=== PATIENT | male | born 1980 | race Caucasian/White ===

== ENCOUNTER → 2017-03-27 | Outpatient (CLI) | payer OTHER, SELFPAY | PROVIDERS: PCP Family Medicine; Visit Provider Family Medicine | DX: M54.5 Low back pain (principal) | CPT/HCPCS: 72148; 76376 ==

== ENCOUNTER → 2017-05-27 13:23 | Outpatient (CLI) | payer OTHER, SELFPAY | PROVIDERS: Visit Provider Family Medicine | DX: J06.9 Acute upper respiratory infection, unspecified (principal) | CPT/HCPCS: 87275; 87276 ==

== ENCOUNTER → 2017-08-11 15:56 | Outpatient (CLI) | payer OTHER, SELFPAY ==
--- NOTE | 2017-08-11 16:00 | CA_ITS ---
PROCEDURE: 2-D M-mode and color Doppler study INDICATIONS FOR THE TEST: Chest pain X COPD Heart Murmur Tobacco Smoking Palpitations Fatigue Syncope Edema Hypertension Diabetes Mellitus Rheumatic Fever SOB CARR Obesity Hyperlipidemia Family History HD Additional History L ARM PAIN ABN EKG PATIENT INFORMATION HEIGHT: 74 WEIGHT:197 GENDER: Male B/P:120/74 2-D/M-MODE INTERPRETATION: 2-D MEASUREMENTS OBSERVED VALUES IN CMS Right Ventricular Dimension (RVDd) 2.6 Interventricular Septum (Thickness)(IVsd) .8 Left Ventricular Internal Dimensions(LVIDd) 5.1 Left Ventricular Posterior Wall (Thickness)(LVPWd) 1.0 Aortic Root 3.1 Aortic Cusp Separation 2.0 Left Atrial Dimensions (LAD) 3.8 2D 1. Left atrium is normal size, left ventricle is normal size, there is no concentric left ventricular hypertrophy, visually estimated ejection fraction 55% with no obvious regional wall motion abnormality. 2. The right atrium and right ventricle are normal size and contractility. 3. The aortic valve is minimally thickened and fibrosed. 4. The mitral and tricuspid valve are grossly normal. 5. The pulmonic valve is poorly visualized. 6. No significant pericardial effusion noted. DOPPLER INTERROGATION: Doppler interrogation of the aortic, mitral and tricuspid valvular presence of mild mitral and tricuspid regurgitation, mild aortic insufficiency is also seen. Tricuspid regurgitant jet velocity insufficient for calculation of the right ventricular systolic pressure, diastolic parameters are normal range. CONCLUSION: 1. Normal left ventricular size, preserved left ventricular systolic function, visually estimated ejection fraction 55% with no obvious regional wall motion abnormality, diastolic parameters are within normal range. 2. Mild aortic, mild mitral and tricuspid regurgitation 3. No significant pericardial effusion noted.
== END ==
PROVIDERS: PCP Family Medicine; Visit Provider Internal Medicine
DX: R94.31 Abnormal electrocardiogram [ECG] [EKG] (principal); M79.602 Pain in left arm
CPT/HCPCS: 93306

== ENCOUNTER → 2018-01-07 15:06 | Outpatient (CLI) | payer OTHER, SELFPAY ==
--- NOTE | 2018-01-07 15:08 | MR_ITS ---
MR lumbar spine wo con, MR 3-d myelogram/MRCP Ordering Physician: Rosales Hogue MD Patient Age: 37 years: Male HISTORY: ITS.REASON: LBP Low back pain with right hip and right leg and lateral calf pain weakness right hip ankle and great toe 6 days. [place] a pop with pain TECHNIQUE: Sagittal STIR, T1, T2, axial T1 and T2. On 1.5T Siemens wide bore MRI. 3-D MR myelogram image set obtained & performed on MRI workstation. Additional sagittal thin section T2 weighted dataset obtained from this latter acquisition as well (---76 CPT) COMPARISON : Previous MRI lumbar March 27, 2017 FINDINGS Vertebral bodies are intact with no compression fracture or osseous lesion L5/S1 mild degenerative disc space narrowing & loss of disc hydration. Fairly stable appearance of this disc since 2017. Again note central disc bulge with slight additional bulge/protrusion just to the left of midline as evident in 2017 MR. mild facet hypertrophy. L4/5.. Loss of disc hydration. Trace disc space narrowing posteriorly. Although the disc space appears similar to previous study, on sagittal image 7 there is focal caudal disc protrusion arising from L4/5 disc.. I believe this contiguous and leads to a sequestered free disc fragment residing along posterior right aspect of L5 vertebral body. L5-. This sequestered/ free disc fragment is best seen on sagittal images 5 &, 6. This sequestered disc fragment measures up to 11 mm height X at least 6 mm AP & nearly 10 mm transverse dimension.. This moderate sized disc fragment effaces the thecal sac to the right anteriorly & displaces the right L5 nerve root. It extends to through the right lateral recess adjacent to the exiting L5 nerve root. This would seem to correlate with the patient's right L5 symptoms. ------ L3/4. Only slight loss of disc hydration a mild central disc bulge. . central disc bulge seen here today is is very slightly less pronounced.. (I initially question if the the free fragment seen posterior to L5 may have arisen from this level and migrated inferiorly, but on final review I favor the free fragment arises from adjacent L4/5 disc extends caudal.) L2/3. Disc intact neural foramen widely patent without L1/2. Mild central disc bulge similar to previous 2017 exam. Slightly flattens and effaces thecal sac at midline. Modest but adequate spinal canal.. Note that Conus ends appropriately posterior to L1 level. T12/L1 disc intact. T11/12 disc intact. 3-D MR myelogram image performed and reviewed.: It Shows a slight anterior indentation from the central disc bulge at L3/4, L1/2 and to lesser L2/3. Posterior to the L5 vertebral body, the mild effacement of the thecal sac to the right (due to the free disc fragment is barely appreciable but is vaguely evident on 3-D myelogram image set as well IMPRESSION 1. The significant new finding is a sequestered/ free disc fragment along posterior right aspect of L5 vertebral body. . This free disc fragment effaces thecal sac anteriorly to the right, & displaces the right L5 nerve root. It also extends downward at the right lateral recess where it may also affect the exiting L5 nerve root sleeve. 2... Degenerative disc changes again noted briefly summarized below: ... L5/S1: Degenerated disc with disc bulge central & slightly left of midline. Appears stable since 2017. ... L4/5: disc appears surprising stable since 2017 but likely is the source of the caudal extruded, free disc fragment to posterior to the L5 described above ... L3/4 & L1/2 mild central disc bulge
== END ==
PROVIDERS: PCP Family Medicine; Visit Provider Family Medicine
DX: M54.5 Low back pain (principal)
CPT/HCPCS: 72148; 76376

== ENCOUNTER → 2018-04-05 15:27 | Outpatient (POV) | payer OTHER, SELFPAY | PROVIDERS: Visit Provider Nurse Practitioner Acute Care | DX: Z00.00 Encounter for general adult medical examination without abnormal findings (principal) ==

== ENCOUNTER → 2019-10-04 11:52 | Outpatient (CLI) | payer OTHER, SELFPAY ==
[2019-10-04 14:41] LABS: Coronavirus 19 IgG Antibody Negative (Negative); Coronavirus 19 IgM Antibody Negative (Negative)
== END ==
PROVIDERS: Visit Provider Internal Medicine Adolescent Medicine
DX: Z03.818 Encounter for observation for suspected exposure to other biological agents ruled out (principal); R05 Cough
CPT/HCPCS: 36415; 86328

== ENCOUNTER → 2019-10-27 07:49 | Outpatient (CLI) | payer OTHER, SELFPAY ==
--- NOTE | 2019-10-27 07:53 | MR_ITS ---
PROCEDURE: MR LUMBAR SPINE WO CON Patient Age:38Y CLINICAL INDICATION: ACUTE LOW BACK PAIN the. Back surgery 2018. Bilateral radicular pain right leg worse than left. No injury. COMPARISON: BILLET [facility]ARER/O MRI-L-SPINE W/O from 03/27/2017 SPLUMBWO MR lumbar spine wo con from 01/07/2018 TECHNIQUE: standard multiplanar multiecho sequences are performed without contrast. 3-D MIP and myelographic images are also rendered and reviewed, 3D images performed on independent MRI workstation No IV contrast used in this postsurgical spine. Contrast of follow-up may be considered if symptoms persist or progress. FINDINGS: The lumbar vertebral bodies are intact with no compression fracture or acute findings but no lesions. Normal marrow signal. Today's scan includes the T11/12 disc and continues down to the S2 level L5/S1:. No significant new findings versus 2018. Again degenerative L5/S1 disc space narrowing is similar prior 2018 study. Minor central disc bulge a noted with slight additional bulge/protrusion just left of midline send it again suggested but no significant change since 2018 L4/5: Interval small right laminectomy L4/5 since 2018. The previously moderate size free disc fragment to the right just inferior to this disc, has been removed. Some scant residual low signal features noted in this same region at right recess, right paracentral on today's study. This most likely reflects fibrosis/scarring (axial T1 image 21, 20 sagittal image 6) rather scant residual or recurrence disc material.. However if symptoms persist you might consider follow-up postcontrast study, particularly if right L5 radiculopathy, to further evaluate this area and greater detail. Enhancement here would support enhancing fibrosis rather than residual recurring disc material., Stable scant residual bulge otherwise seen L4/5 only very slightly more evident to the right L3/4. Stable minimal degenerative disc changes. Stable mild diffuse disc bulge which slightly flattens and very slight effaces anterior aspect of thecal sac.. Unchanged. With this slightly evident on 3D myelogram image set as well. Also again note the stable slight loss of disc hydration with borderline narrowing of this disc space. Minimal disc bulge towards foramen and recesses.-appears unchanged L2/3. Disc well-hydrated maintained unremarkable. Neural foramen patent. L1/2. No change. Stable minor central bulge again with some upper normal signal at the posterior disc margin-. I would overall this disc well hydrated and height well maintained T12/L1 and L1/L2 disc unremarkable.. Conus ends appropriately at L1 + Very small Schmorl's node superior and inferior endplate L1 unchanged 3D MR myelogram image set shows no new findings Aorta normal caliber no retroperitoneal adenopathy or process. The partially imaged medial aspect the kidneys of satisfactory, stable-with no obstructive uropathy evident IMPRESSION: 1..Small Right Laminectomy L4/5 now evident with interval removal of prominent free disc fragment to the right at L4/5, since prior 2018 MR lumbar. Scant residual low signal right recess/right paracentral at prior postsurgical region L4/5-. Tend favor reflects postsurgical Epidural Fibrosis but is noted.- If right-sided symptoms persist, consider follow-up Postcontrast MRI lumbar to further evaluate-(postsurgical epidural fibrosis tends to enhance on post-contrast studies) 2. Mild Degenerative Changes other levels lumbar spine observed& Stable; with No appreciable change since MR lumbar studies: . L5/S1- degenerative disc space narrowing; with Mild Central Disc Bulge extending just left of midline . L4/5-scant minor diffuse disc
== END ==
PROVIDERS: PCP Internal Medicine Adolescent Medicine; Visit Provider Internal Medicine Adolescent Medicine
DX: M54.5 Low back pain (principal)
CPT/HCPCS: 72148; 76376

== ENCOUNTER → 2020-05-01 08:19 | Outpatient (POV) | payer OTHER, SELFPAY | PROVIDERS: Visit Provider Dermatology | DX: Z00.00 Encounter for general adult medical examination without abnormal findings (principal) ==

== ENCOUNTER → 2020-06-08 08:09 | Outpatient (CLI) | payer OTHER, SELFPAY ==
[2020-06-08 09:13] LABS: Alanine Aminotransferase 27 U/L (12-78); Albumin/Globulin Ratio 1.8 (1.1-1.8); Alkaline Phosphatase 45 U/L (38-126); Anion Gap 13.5 mEq/L (5-15); Aspartate Amino Transferase 36 U/L (17-59); Bilirubin,Total 1.1 mg/dl (0.2-1.3); Blood Urea Nitrogen 15 mg/dl (9-20); Calcium 9.9 mg/dl (8.4-10.2); Carbon Dioxide 29 mmol/L (22.0-30.0); Chloride 103 mmol/L (98-107); Estimated Glomerular Filt Rate 94 ml/min (>60); GFR (African American) 114 ML/MIN (>60); Globulin 2.8 g/dL (1.3-3.2); Glucose 85 mg/dl (74-100); Potassium 4.5 mmoL/L (3.5-5.1); Sodium 141 mmol/L (136-145); Total Protein,Serum 7.8 g/dl (6.3-8.2); Uric Acid 7.8 mg/dl (3.5-8.5)
== END ==
PROVIDERS: Visit Provider Internal Medicine Adolescent Medicine
DX: M79.674 Pain in right toe(s) (principal)
CPT/HCPCS: 36415; 80053; 84550

== ENCOUNTER → 2020-06-18 08:02 | Outpatient (CLI) | payer OTHER, SELFPAY | PROVIDERS: PCP Internal Medicine Adolescent Medicine; Visit Provider Nurse Practitioner Family | DX: R07.9 Chest pain, unspecified (principal); R00.2 Palpitations | CPT/HCPCS: 93225; 93226 ==

== ENCOUNTER → 2020-06-19 15:07 | Outpatient (CLI) | payer OTHER, SELFPAY ==
--- NOTE | 2020-06-19 15:10 | CA_ITS ---
APPROVED REPORT EXAM: Comprehensive 2D, Doppler, and color-flow Echocardiogram Shading Painter: Rosio Umanzor RT(R) Ht: 6 ft 2 in Wt: 197lbs BSA: 2.16 BP: 120/75 mmHg Indications: CP, chest tightness at rest and exertion, dizziness, vertigo 2D Dimensions LVOT 1.97 cm (M/F) 1.5-2.5 M-Mode Dimensions RVDd 2.70 cm (0.9-2.6) LA Diam 3.66 cm (1.9-4.0) LVDd 5.13 cm (3.5-5.7) Ao Diam 2.33 cm (2.0-3.7) LVDs 3.34 cm (3.5-5.7) IVSd 0.84 cm (0.6-1.1) PWd 0.91 cm (0.6-1.1) EF (Teich) 63.80% FS 34.90% EDV (Teich) 125.50 mL ESV (Teich) 45.40 mL LV Diastology E Decel Time 217.00 (160-240 msec) E/A Ratio 1.2 MED E' 15.70 (< 7 cm/sec) E'/MED E' Ratio 6.54 (>14) LAT E' 15.40 (<10 cm/sec) E/LAT E' Ratio 6.67 (>14) Mitral Valve MV E Max Carlin. 103.00 (40-130 cm/s) MV A Velocity 88.00 (40-130 cm/s) E/A Ratio 1.17 MV Decel. Time 217.00 (160-240 ms) MV PHT 63.00 ms Tricuspid Valve TR P. Velocity 274.00 cm/s RAP Estimate 10.00 mmHg RVSP 40.00 mmHg Left Ventricle Left atrium is normal size, left ventricle is normal size, there is no concentric left ventricular hypertrophy, visually estimated ejection fraction 55% with no regional wall motion abnormality, diastolic parameters are within normal range. Right Ventricle Right atrium and right ventricular upper limit of the normal size and function. Aortic Valve Aortic valve is minimally thickened and fibrosed, there is no aortic stenosis or aortic insufficiency. Mitral Valve Mitral valve is grossly normal, there is trace mitral regurgitation. Tricuspid Valve Tricuspid valve grossly normal, there is mild tricuspid regurgitation, calculated right ventricular systolic pressure is 37 mmHg. Pulmonic Valve Pulmonic valve is poorly visualized. Great Vessels Aortic root is normal size. Pericardium No significant pericardial effusion noted. Conclusion 1. Normal left ventricular size, preserved left ventricular systolic function, visually estimated ejection fraction 55% with no regional wall motion abnormality, diastolic parameters are within normal range. 2. Trace mitral and mild tricuspid regurgitation, calculated right ventricular systolic pressure 37 mmHg. 3. No significant pericardial effusion noted. Electronically signed by : Richard Crowley, 06/19/2020 19:30:31
== END ==
PROVIDERS: PCP Internal Medicine Adolescent Medicine; Visit Provider Nurse Practitioner Family
DX: R07.9 Chest pain, unspecified (principal); R00.2 Palpitations
CPT/HCPCS: 93306

== ENCOUNTER → 2020-06-28 13:15 | Outpatient (CLI) | payer OTHER, SELFPAY ==
--- NOTE | 2020-06-28 13:15 | CT_ITS ---
PROCEDURE: CT ANGIO CHEST CLINCIAL INDICATION: Dyspnea, abnormal echo COMPARISON: No exams were available for comparison TECHNIQUE: IV Contrast: 70ML Isovue 370 Axial images obtained with sagittal and coronal reformats. All CT scans at the facility use one or more dose reduction, viz: automated exposure control, ma/kV adjustment per patient size (including targeted exams where dose is matched to indication, i.e. head), or iterative reconstruction technique. FINDINGS: HEART AND MEDIASTINAL STRUCTURES: The pulmonary arteries demonstrate adequate opacification. There is minor beam hardening artifact noted in the main pulmonary arteries without evidence of focal filling defects. The segmental and subsegmental vessels opacify normally without evidence of focal filling defects. The heart size is normal. No pericardial effusions. The visualized thoracic aorta is unremarkable LUNGS AND PLEURAL SPACES: No focal consolidation, pleural effusions or pneumothorax. No suspicious lung nodules. Calcified granulomas in the right upper lobe. The central tracheobronchial tree is patent. No suspicious lung nodules. BONY STRUCTURES: Multilevel degenerative changes of the thoracic spine. UPPER ABDOMEN: Cholecystectomy is noted. The visualized upper abdominal solid organs are unremarkable within the limitations of phase of IV contrast. Tortuous splenic vessels noted. ADDITIONAL FINDINGS: The visualized thyroid gland is unremarkable. IMPRESSION: No evidence of pulmonary embolism. No acute intrathoracic abnormality. Dictated by: Stacie Lopez 06/28/2020 14:15 Stacie Lopez in [place] 06/28/2020 14:15
== END ==
PROVIDERS: PCP Internal Medicine Adolescent Medicine; Visit Provider Internal Medicine Cardiovascular Disease
DX: R06.00 Dyspnea, unspecified (principal); R93.1 Abnormal findings on diagnostic imaging of heart and coronary circulation
CPT/HCPCS: 71275; Q9967

== ENCOUNTER → 2020-07-18 15:14 | Outpatient (CLI) | payer OTHER, SELFPAY | PROVIDERS: PCP Internal Medicine Adolescent Medicine; Visit Provider Physician Assistant | DX: Z87.898 Personal history of other specified conditions (principal); R06.83 Snoring; R53.83 Other fatigue; G47.30 Sleep apnea, unspecified | CPT/HCPCS: 95806 ==

== ENCOUNTER → 2021-04-03 14:28 | Outpatient (CLI) | payer OTHER, SELFPAY ==
--- NOTE | 2021-04-03 14:29 | MR_ITS ---
FINAL REPORT CLINICAL HISTORY: RT elbow pain without injury or trauma FINDINGS: Multiplanar MR imaging of the right elbow was performed without contrast. The bony structures are intact without evidence of fracture, bone bruise or marrow edema. There is no evidence of osteochondral lesion. The ligaments appear intact. There is heterogeneous signal within the common extensor tendon. There is mild abnormal linear signal at the insertion of the common extensor tendon consistent with a partial insertional tear best seen on image 21 of series 9. There is diffuse heterogeneous signal in the common flexor tendon consistent with degeneration and insertional tear. The biceps tendon is intact. The distal triceps tendon is intact. The brachialis tendon is intact. The musculature has an unremarkable appearance. A small joint effusion is present. No focal abnormality is identified of the ulnar nerve. IMPRESSION: Partial insertional tears of the common extensor and common flexor tendons. Small joint effusion. Reviewed, Interpreted and Dictated by Akil Massey MD Transcribed by Panchito Lozano Authenticated by Akil Massey MD on 04/03/2021 03:54:[address] [facility]
== END ==
PROVIDERS: PCP Internal Medicine Adolescent Medicine; Visit Provider Orthopaedic Surgery
DX: M77.01 Medial epicondylitis, right elbow (principal)
CPT/HCPCS: 73221

== ENCOUNTER → 2022-01-14 07:10 | Outpatient (CLI) | payer OTHER, SELFPAY ==
--- NOTE | 2022-01-14 07:40 | MR_ITS ---
FINAL REPORT CLINICAL HISTORY: LOW BACK PAIN. HX BACK SURGERY 2018.. PAIN, NUMBNESS, AND TINGLING BILATERALLY DOWN LEGS BUT RIGHT LEG IS WORSE. WEAKNESS IN RIGHT ANKLE AND TOE EXTENSION. COMPARISON: The September 2019 FINDINGS: Multiplanar MR imaging of the lumbar spine was performed without contrast. On the sagittal T2-weighted images, disc degeneration is seen at multiple levels. There is a hemangioma in T12. There are several Schmorl's nodes. The vertebral alignment is normal. There is no evidence of fracture. The conus has an unremarkable appearance. T12-L1: No significant central canal stenosis or neural foraminal narrowing. L1-2: There is an annular bulge with a posterior midline annular tear. L2-3: There is an annular bulge with a posterior midline annular tear. There is mild right neural foraminal narrowing. L3-4: There is an annular bulge with a posterior midline annular tear and small central disc protrusion, similar to prior. There is mild bilateral neural foraminal narrowing. L4-5: There is an annular bulge with mild right neural foraminal narrowing. L5-S1: An annular bulge is present. A central disc protrusion indents the thecal sac and contacts the left S1 nerve root, visually stable. There is mild bilateral neural foraminal narrowing. IMPRESSION: Multilevel degenerative disc disease with areas of neural foraminal narrowing. Disc protrusions at L3-L4 and L5-S1, similar to prior. Reviewed, Interpreted and Dictated by John Sapp III, MD Transcribed by Panchito Lozano Authenticated and [facility]
== END ==
PROVIDERS: PCP Nurse Practitioner Family
DX: M54.50 Low back pain, unspecified (principal)
CPT/HCPCS: 72148; 76376

== ENCOUNTER → 2022-06-20 07:58 | Outpatient (CLI) | payer OTHER, SELFPAY ==
[2022-06-20 08:39] LABS: Basophils # 0.1 K/mm3 (0-0.2); Basophils % 1.3 % (0.1-2.0); Eosinophils # 0.1 K/mm3 (0.0-0.4); Hematocrit 42.2 % (42.0-52.0); Hemoglobin 14.4 g/dL (14.1-18.0); Lymphocytes # 1.2 K/mm3 (0.7-4.5); Mean Corpuscular HGB Conc 34.1 g/dL (31.8-35.4); Mean Corpuscular Hemoglobin 31.5 pg (27.0-31.2); Mean Corpuscular Volume 92.3 fl (80-94); Mean Platelet Volume 8.1 fl (7.4-10.4); Monocytes # 0.4 K/mm3 (0.1-1.0); Monocytes % 6.8 % (1.7-9.3); Neutrophils # 4.1 K/mm3 (1.8-7.8); Platelet Count 256 K/mm3 (142-424); Red Blood Count 4.57 M/mm3 (4.60-6.20); Red Cell Distribution Width 12.6 % (11.5-17.5); White Blood Count 5.8 K/mm3 (4.8-10.8)
[2022-06-20 08:56] LABS: Alanine Aminotransferase 52 U/L (12-78); Albumin Level 4.7 g/dl (3.5-5.0); Albumin/Globulin Ratio 1.9 (1.1-1.8); Alkaline Phosphatase 47 U/L (38-126); Anion Gap 8.7 mEq/L (5-15); Aspartate Amino Transferase 49 U/L (17-59); Bilirubin,Total 1.4 mg/dl (0.2-1.3); Blood Urea Nitrogen 16 mg/dl (9-20); Calcium 9.1 mg/dl (8.4-10.2); Carbon Dioxide 32 mmol/L (22.0-30.0); Chloride 100 mmol/L (98-107); Chol/HDL Ratio 4.5 (1-3.5); Cholesterol 179 mg/dl (140-200); Estimated Glomerular Filt Rate 93 ml/min (>60); GFR (African American) 113 ML/MIN (>60); Globulin 2.5 g/dL (1.3-3.2); Glucose 82 mg/dl (74-100); HDL Cholesterol 40 mg/dl (40-60); Potassium 4.7 mmoL/L (3.5-5.1); Sodium 136 mmol/L (136-145); Total Protein,Serum 7.2 g/dl (6.3-8.2); Triglycerides 60 mg/dl (30-150); VLDL Cholesterol 12 mg/dL (0-40)
[2022-06-20 09:07] LABS: Direct LDL Cholesterol 117.41 mg/dL (100-129)
[2022-06-20 09:28] LABS: Prostate Specific Ag Screen 0.8 ng/ml (0.0-4.0)
== END ==
PROVIDERS: PCP Nurse Practitioner Family; Visit Provider Nurse Practitioner Family
DX: Z00.00 Encounter for general adult medical examination without abnormal findings (principal); Z80.42 Family history of malignant neoplasm of prostate; Z12.5 Encounter for screening for malignant neoplasm of prostate
CPT/HCPCS: 36415; 80053; 80061; 84443; 85025; G0103

== ENCOUNTER → 2022-07-16 13:31 | Outpatient (CLI) | payer OTHER, SELFPAY ==
[2022-07-16 15:47] LABS: Alanine Aminotransferase 60 U/L (12-78); Albumin Level 5.4 g/dl (3.5-5.0); Alkaline Phosphatase 54 U/L (38-126); Aspartate Amino Transferase 49 U/L (17-59); Bilirubin,Indirect 1.3 mg/dL (0.0-0.9); Bilirubin,Total 1.3 mg/dl (0.2-1.3); Bilirubin,Unconjugated 1.4 mg/dL (0.0-1.1); Total Protein,Serum 8.1 g/dl (6.3-8.2)
[2022-07-25 12:25] LABS: F001-IgE Egg White <0.10 kU/L (Class 0); F002-IgE Milk <0.10 kU/L (Class 0); F003-IgE Codfish <0.10 kU/L (Class 0); F004-IgE Wheat <0.10 kU/L (Class 0); F010-IgE Sesame Seed <0.10 kU/L (Class 0); F013-IgE Peanut <0.10 kU/L (Class 0); F014-IgE Soybean <0.10 kU/L (Class 0); F024-IgE Shrimp <0.10 kU/L (Class 0); F256-IgE Walnut <0.10 kU/L (Class 0); F338-IgE Scallop <0.10 kU/L (Class 0)
== END ==
PROVIDERS: PCP Nurse Practitioner Family; Visit Provider Nurse Practitioner Family
DX: R10.9 Unspecified abdominal pain (principal); K30 Functional dyspepsia; R17 Unspecified jaundice; G89.29 Other chronic pain
CPT/HCPCS: 36415; 80076; 86003; 86008

== ENCOUNTER → 2022-07-18 08:46 | Outpatient (CLI) | payer OTHER, SELFPAY ==
--- NOTE | 2022-07-18 11:29 | US_ITS ---
FINAL REPORT CLINICAL HISTORY: ABNORMAL BILIRUBIN FINDINGS: Sonographic images of the right upper quadrant were obtained. The pancreas is partially obscured. The liver has an unremarkable appearance. The portal vein is patent with normal directional flow. The hepatic veins are patent. The gallbladder is surgically absent. There is no evidence of biliary ductal dilatation.The common duct measures 2 mm. Limited images of the right kidney are unremarkable. IMPRESSION: Cholecystectomy. Otherwise unremarkable exam. Reviewed, Interpreted and Dictated by John Sapp III, MD Transcribed by Lelia Rolon Authenticated and [facility]
== END ==
PROVIDERS: PCP Nurse Practitioner Family; Visit Provider Nurse Practitioner Family
DX: R79.89 Other specified abnormal findings of blood chemistry (principal)
CPT/HCPCS: 76705

== ENCOUNTER 2022-10-22 18:19 | Emergency (ER) | payer OTHER, SELFPAY ==
[2022-10-22 18:50] VITALS: BP 121/86; PULSE 54; RESP 18; TEMP 37; O2SAT 99; BMI 25.7
[2022-10-22 19:03] VITALS: BP 121/86; PULSE 54; RESP 18; TEMP 37; O2SAT 99
--- NOTE | 2022-10-22 19:21 | EXP.UTC ---
Discharge Plan Disposition Patient Disposition: Home, Self-Care Condition: Good Prescriptions Prescriptions: New amoxicillin 500 mg tablet 500 mg PO Q12H 10 Days Qty: 20 0RF No Action buspirone 10 mg tablet 10 mg PO BID Referrals Follow up/Referrals: Joana Mcfadden APRN [Primary Care Provider] - See instructions Clinical Impressions Clinical Impression: Strep pharyngitis Instructions Patient Instructions: DI for Strep Throat Discharge ED Provider: Angelia Cameron [facility] General Stated complaint: exposed to strep Mode of Arrival: Ambulatory Source of Information: Patient Limitations: No Limitations Time Seen by Provider: 10/22/22 19:21 Description of Symptoms (Recalled from Triage Doc. by RN): PATIENT STATES HIS THROAT FEELS SWOLLEN WITH WHITE DRAINAGE. HE THINKS HE MIGHT HAVE BEEN RECENTLY EXPOSED TO STREP HEENT Symptoms (Recalled from RN notes): Yes Resp Symptoms (Recalled from RN notes): No Skin Symptoms (Recalled from RN notes): No MS Symptoms (Recalled from RN notes): No Functional Status (Recalled from RN notes): WNL History of Present Illness Provider Complaint: Pt states that he just got back from vacation and feels as if he may have been exposed to strep as his throat is sore and feels swollen. Related Data Home Medications Medication Instructions Recorded Confirmed buspirone 10 mg tablet 10 mg PO BID GASTRIC MOTILITY 06/22/20 10/22/22 Previous Rx's Medication Instructions Recorded amoxicillin 500 mg tablet 500 mg PO Q12H 10 days #20 tabs 10/22/22 Allergies Allergy/AdvReac Type Severity Reaction Status Date / Time hydromorphone [HYDROMORPHONE] Allergy Severe S-DIFF. Verified 02/08/21 14:18 BREATHING, CHEST TIGHTNESS Worker's Comp Is this a Worker's Comp case?: No [facility] Disclaimer: The information contained in this section may have been updated after the patient was seen, as this information can be updated by other users. Social History Smoking Status: Never smoker alcohol intake: current substance use type: denies use current occupational status: employed Travel in the last 8 weeks: None household members: spouse and family housing: house caffeine: No ROS Obtained: Yes All systems reviewed & no additional complaints except as documented Constitutional Constitutional: Reports system reviewed and no additional complaints, except as documented and Reports malaise Eyes Eyes: Reports system reviewed and no additional complaints, except as documented ENT Ears, Nose, Mouth, and Throat: Reports system reviewed and no additional complaints, except as documented, Reports odynophagia and Reports sore throat Cardiovascular Cardiovascular: Reports system reviewed and no additional complaints, except as documented Respiratory Respiratory: Reports system reviewed and no additional complaints, except as documented Gastrointestinal Gastrointestingal: Reports system reviewed and no additional complaints, except as documented and odynophagia Genitourinary Male Genitourinary: Reports system reviewed and no additional complaints, except as documented Musculoskeletal Musculoskeletal: Reports system reviewed and no additional complaints, except as documented Integumentary/Breasts Skin/Breast: Reports system reviewed and no additional complaints, except as documented Neurologic Neurologic: Reports system reviewed and no additional complaints, except as documented Endocrine Endocrine: Reports system reviewed and no additional complaints, except as documented Hematologic/Lymphatic Henatologic/Lymphatic: Reports system reviewed and no additional complaints, except as documented Allergic/Immunologic Allergic/Immunologic: Reports system reviewed and no additional complaints, except as documented Physical Exam General General appearance: alert and in no apparent distress Head Head exam: atraumatic and normocephalic Eye Eye exam: Present nor
[2022-10-22 19:24] LABS: UTC Strep Screen (Rapid) Positive (Negative)
== END 2022-10-22 19:42 | disposition home or self-care (01) ==
PROVIDERS: Emergency Provider Nurse Practitioner Family; PCP Nurse Practitioner Family
DX: J02.0 Streptococcal pharyngitis (principal)
CPT/HCPCS: 87880; 99204; 99212; G0463

== ENCOUNTER 2022-11-24 17:56 | Emergency (ER) | payer OTHER, SELFPAY ==
--- NOTE | 2022-11-24 17:56 | ECG_ITS ---
APPROVED REPORT Exam: Resting ECG HR:58 bpm ECG Measurements Heart Rate 58 AXES NV 183 P 54 QRSd 94 QRS 39 QT 410 T 47 QTc 407 Conclusion SINUS BRADYCARDIA WITH SINUS ARRHYTHMIA BORDERLINE ECG UNCONFIRMED REPORT Electronically signed by : Brian Lowry MD 11/25/2022 17:19:03
[2022-11-24 17:58] VITALS: BP 166/100; PULSE 61; RESP 17; TEMP 36.9; O2SAT 97; BMI 25.0
[2022-11-24 18:05] VITALS: BMI 25.0
--- NOTE | 2022-11-24 18:06 | XR_ITS ---
PROCEDURE INFORMATION: Exam: XR Chest Exam date and time: 11/24/2022 6:07 PM Age: 42 years old Clinical indication: Sternal or substernal pain; Additional info: Chest pain protocol TECHNIQUE: Imaging protocol: Radiologic exam of the chest. Views: 1 view. COMPARISON: CT ANGIO CHEST 06/28/2020 1:23 PM FINDINGS: Lungs: No consolidation. Small right apical calcified granulomas. Pleural spaces: Unremarkable. No pleural effusion. No pneumothorax. Heart/Mediastinum: Unremarkable. No cardiomegaly. Bones/joints: Unremarkable. IMPRESSION: No acute pulmonary findings.
--- NOTE | 2022-11-24 18:11 | PC.NURSE ---
portable chest xray at [facility]
[2022-11-24 18:16] LABS: Basophils # 0.1 K/mm3 (0-0.2); Basophils % 0.7 % (0.1-2.0); Eosinophils # 0.1 K/mm3 (0.0-0.4); Hematocrit 44.4 % (42.0-52.0); Hemoglobin 15.4 g/dL (14.1-18.0); Lymphocytes # 1.9 K/mm3 (0.7-4.5); Lymphocytes % 22.1 % (10-50); Mean Corpuscular HGB Conc 34.6 g/dL (31.8-35.4); Mean Corpuscular Hemoglobin 31.5 pg (27.0-31.2); Mean Platelet Volume 8.4 fl (7.4-10.4); Monocytes # 0.4 K/mm3 (0.1-1.0); Monocytes % 5.2 % (1.7-9.3); Platelet Count 267 K/mm3 (142-424); Red Blood Count 4.88 M/mm3 (4.60-6.20); Red Cell Distribution Width 12.1 % (11.5-17.5); White Blood Count 8.5 K/mm3 (4.8-10.8)
[2022-11-24 18:18] LABS: Chloride 96 mmol/L (98-107)
[2022-11-24 18:19] LABS: Potassium 3.6 mmoL/L (3.5-5.1); Sodium 137 mmol/L (136-145)
[2022-11-24 18:21] LABS: Blood Urea Nitrogen 16 mg/dl (9-20); Creatinine Clearance Estimated 120 mL/min (50-200); Estimated Glomerular Filt Rate 82 ml/min (>60); GFR (African American) 99 ML/MIN (>60)
[2022-11-24 18:22] LABS: Anion Gap 15.6 mEq/L (5-15); Calcium 9.9 mg/dl (8.4-10.2); Carbon Dioxide 29 mmol/L (22.0-30.0); Glucose 107 mg/dl (74-100)
[2022-11-24 18:30] VITALS: BP 162/87; PULSE 58; O2SAT 97
[2022-11-24 18:35] LABS: Troponin I 0.01 ng/ml (0.00-0.034)
--- NOTE | 2022-11-24 18:41 | HMH.EDGENADL ---
Discharge Plan Disposition Patient Disposition: Home, Self-Care Prescriptions Prescriptions: New amoxicillin-pot clavulanate [Augmentin] 500-125 mg tablet 1 tab PO BID 10 Days Qty: 20 0RF No Action buspirone 10 mg tablet 10 mg PO BID amoxicillin 500 mg tablet 500 mg PO Q12H 10 Days Qty: 20 0RF Referrals Follow up/Referrals: Provider,Referral, MD [Primary Care Provider] - See instructions Activity Restrictions/Add. Instructions Additional Instructions/Restrictions: Call your family doctor to establish care for this visit to the emergency department and schedule follow-up within 48 hours to ensure improvement. If you have any worsening of your condition or any other concerning signs or symptoms, return to the emergency department or your primary care doctor for further evaluation. Take Tylenol 1000 mg every 6 hours (4 times daily) and ibuprofen 400 mg every 6 hours (4 times daily) as needed with food and water to prevent GI upset and kidney damage. Flonase and Zyrtec/Claritin daily. Clinical Impressions Clinical Impression: Chest pain, Acute dehydration Acute serous otitis media Qualifiers: Laterality: right Recurrence: recurrent Qualified Code(s): H65.04 - Acute serous otitis media, recurrent, right ear Discharge ED Provider: Jhoan Covington General Adult HPI General Chief complaint: Chest Pain Stated complaint: CP Time Seen by Provider: 11/24/22 18:07 Mode of Arrival: Ambulatory Source of Information: Patient Limitations: No Limitations Description of Symptoms (Recalled from ER Triage Doc. by RN): Presents to ED with c/o midsternal chest pressure and shaking that started after running 3 miles at approx. 1230. Patient reports also having left arm pain that is intermittent. Patient states he has seen cardiology for similar episodes with a negative work up. 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 Denies cardiac hx. History of Present Illness HPI narrative: This a 42-year-old male with history of anxiety, neuropathy of the left upper extremity, mitral valve regurgitation presenting with chest pain and multiple complaints. Patient states that he went on a run today, 11/24 for a few miles in the heat. [place] worse than usual while running. Shortly after running, patient states that he continued to have chest pain with associated left upper extremity pain that persisted despite rest. 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 States he is currently feeling worse than he did when he was running. Not currently diaphoretic, did not have any vomiting, syncopal episodes, or any other concerns. No neurologic deficits of the left face, left lower extremity, or any other trauma. Related Data Home Medications Medication Instructions Recorded Confirmed buspirone 10 mg tablet 10 mg PO BID GASTRIC MOTILITY 06/22/20 10/22/22 Previous Rx's Medication Instructions Recorded amoxicillin 500 mg tablet 500 mg PO Q12H 10 days #20 tabs 10/22/22 amoxicillin 500 mg-potassium 1 tab PO BID 10 days #20 tabs 11/24/22 clavulanate 125 mg tablet (Augmentin) Allergies Allergy/AdvReac Type Severity Reaction Status Date / Time hydromorphone [HYDROMORPHONE] Allergy Severe S-DIFF. Verified 02/08/21 14:18 BREATHING, CHEST TIGHTNESS PFSH PFSH Disclaimer: The information contained in this section may have been updated after the patient was seen, as this information can be updated by other users. Social History Smoking Status: Never smoker alcohol intake: current substance use type: denies use current occupational status: employed Travel in the last 8 weeks: None household members: spouse and family housing: house caffeine: No ROS Obtained: Yes All systems reviewed & no additional complaints except as documented Physical Exam General G
--- NOTE | 2022-11-24 18:54 | PC.NURSE ---
updated pt on POC, pt call button in reach, pt states no needs at this time.
[2022-11-24 19:01] VITALS: BP 132/81; PULSE 54; RESP 14; O2SAT 98
--- NOTE | 2022-11-24 19:14 | PC.NURSE ---
Rounded on patient; call peraza within reach of patient. Updated on plan of care
[2022-11-24 19:16] LABS: T4 (Thyroxine) 8.6 ug/dl (5.53-11.0)
[2022-11-24 19:29] LABS: Thyroid Stimulating Hormone 4.77 uIU/mL (0.465-4.68)
[2022-11-24 19:31] VITALS: BP 126/78; PULSE 47; RESP 16; O2SAT 98
--- NOTE | 2022-11-24 19:39 | PC.NURSE ---
rounded on pt, no needs at this time
[2022-11-24 20:00] VITALS: BP 128/78; RESP 15
--- NOTE | 2022-11-24 20:01 | PC.NURSE ---
rounded and checked on pt. no new complaints at this time. pt just awaiting his results.
--- NOTE | 2022-11-24 20:17 | PC.NURSE ---
rounded on patient no needs at t his time
[2022-11-24 20:24] VITALS: BP 133/91; PULSE 57; RESP 19; TEMP 36.7; O2SAT 98
[2022-11-24 21:08] LABS: Troponin I 0.01 ng/ml (0.00-0.034)
== END 2022-11-24 20:26 | disposition home or self-care (01) ==
PROVIDERS: Emergency Provider Emergency Medicine
DX: R07.9 Chest pain, unspecified (principal); E86.0 Dehydration; H65.04 Acute serous otitis media, recurrent, right ear
CPT/HCPCS: 71045; 80048; 84436; 84443; 84484; 85025; 93005; 96360; 96361; 99285

== ENCOUNTER → 2023-03-10 11:27 | Outpatient (CLI) | payer OTHER, SELFPAY ==
--- NOTE | 2023-03-10 11:31 | XR_ITS ---
FINAL REPORT CLINICAL HISTORY: . pain FINDINGS: CERVICAL SPINE Five views demonstrate no acute fracture. The disc spaces are well preserved. There is no malalignment. There is dense calcification which appears to be at the left bifurcation or submandibular gland. IMPRESSION: Dense calcification as detailed above. CT could better characterize and localize. THORACIC SPINE Three views demonstrate no acute fracture. There are mild hypertrophic changes of degenerative disc disease in the midthoracic spine. There is no malalignment. There is a calcified right paratracheal lymph node. There is mild thoracic scoliosis convex to the left measuring 12 degrees. IMPRESSION: Degenerative changes as above. Reviewed, Interpreted and Dictated by Akil Massey MD Transcribed by Traci Crowder Authenticated and [facility]
== END ==
PROVIDERS: PCP Nurse Practitioner Family; Visit Provider Nurse Practitioner Family
DX: M51.36 Other intervertebral disc degeneration, lumbar region (principal); M54.2 Cervicalgia; M54.12 Radiculopathy, cervical region
CPT/HCPCS: 72084

== ENCOUNTER 2023-04-10 13:34 | Outpatient (CLI) | payer OTHER, SELFPAY ==
--- NOTE | 2023-04-10 13:40 | CT_ITS ---
FINAL REPORT TECHNIQUE: Thin section axial CT images were obtained through the neck after intravenous contrast administration. Coronal and sagittal reformats were also obtained. This study was performed with techniques to keep radiation doses as low as reasonably achievable (ALARA). Individualized dose reduction techniques using automated exposure control or adjustment of mA and/or kV according to the patient''s size were employed. CLINICAL HISTORY: .mass of submandibular region seen on xray COMPARISON: Cervical spine x-ray 03/10/2023 FINDINGS: The nasopharynx, oropharynx, hypopharynx and larynx are unremarkable. There are several coarse calcifications in the left neck favored to represent calcified left neck nodes measuring up to 7 mm. The thyroid gland is unremarkable. The submandibular glands are unremarkable. The visualized sinuses are clear. There is no acute osseous abnormality. IMPRESSION: Calcified left neck nodes in the region of interest. Reviewed, Interpreted and Dictated by John Sapp III, MD Transcribed by Zena Nieves Authenticated and [facility]
[2023-04-10] MEDS: IOPAMIDOL-370 (76%);100ML BOTTLE 75 ML IV (13:51)
[2023-04-10] MEDS: SODIUM CHLORIDE 0.9% 10ML SYR (RAD ONLY) 10 ML IV (13:51)
== END 2023-04-10 23:59 ==
PROVIDERS: PCP Nurse Practitioner Family; Visit Provider Nurse Practitioner Family
DX: R22.1 Localized swelling, mass and lump, neck (principal)
CPT/HCPCS: 70491; Q9967

== ENCOUNTER 2023-04-12 09:19 | Day surgery (SDC) | payer OTHER, SELFPAY ==
[2023-04-12] VITALS (10 sets, daily range): BP systolic 133–163; BP diastolic 75–94; PULSE 46–75; RESP 15–18; TEMP 36.6–43; O2SAT 93–100; BMI 25.0
--- NOTE | 2023-04-12 09:31 | PC.NURSE ---
DR RAMON AT BEDSIDE
--- NOTE | 2023-04-12 09:33 | CT_ITS ---
PROCEDURE INFORMATION: Exam: CT Abdomen And Pelvis With Contrast Exam date and time: 04/12/2023 10:04 AM Age: 42 years old Clinical indication: Abdominal pain; Other: Rlq; Additional info: Rlq abd pain TECHNIQUE: Imaging protocol: Computed tomography of the abdomen and pelvis with contrast. Radiation optimization: All CT scans at this facility use at least one of these dose optimization techniques: automated exposure control; mA and/or kV adjustment per patient size (includes targeted exams where dose is matched to clinical indication); or iterative reconstruction. Contrast material: ISOVUE; Contrast volume: 70 ml; Contrast route: IV; COMPARISON: US LIVER 07/18/2022 12:41 PM FINDINGS: Liver: Normal. No mass. Gallbladder and bile ducts: Cholecystectomy clips are seen. Pancreas: Normal. No ductal dilation. Spleen: Normal. No splenomegaly. Adrenal glands: Normal. No mass. Kidneys and ureters: Normal. No hydronephrosis. Stomach and bowel: Unremarkable. No obstruction. No mucosal thickening. Appendix: The appendix demonstrates diffuse distention measuring 1 cm with enhancing wall and surrounding fat stranding, consistent with acute appendicitis. Intraperitoneal space: No evidence of free air in the abdomen. Vasculature: Unremarkable. No abdominal aortic aneurysm. Lymph nodes: Unremarkable. No enlarged lymph nodes. Urinary bladder: Unremarkable as visualized. Reproductive: Unremarkable as visualized. Bones/joints: There are mild degenerative changes present in the spine. Soft tissues: Unremarkable. IMPRESSION: 1. The appendix demonstrates diffuse distention measuring 1 cm with enhancing wall and surrounding fat stranding, consistent with acute appendicitis. No evidence of perforation or abscess. Findings consistent with acute appendicitis. 2. Cholecystectomy. THIS REPORT CONTAINS FINDINGS THAT MAY BE CRITICAL TO PATIENT CARE. The findings were verbally communicated via telephone conference with Shirley Carey at 10:37 AM EST on 04/12/2023. The findings were acknowledged and understood.
--- NOTE | 2023-04-12 09:34 | ED_ITS ---
Discharge Plan Disposition Patient Disposition: Admitted Prescriptions Prescriptions: No Action buspirone 10 mg tablet 10 mg PO BID amoxicillin 500 mg tablet 500 mg PO Q12H 10 Days Qty: 20 0RF amoxicillin-pot clavulanate [Augmentin] 500-125 mg tablet 1 tab PO BID 10 Days Qty: 20 0RF Referrals Follow up/Referrals: Joana Mcfadden APRN [Primary Care Provider] - See instructions Clinical Impressions Clinical Impression: Acute appendicitis Instructions Patient Instructions: DI for Acute Abdominal Pain Discharge ED Provider: Shirley Carey General Adult HPI General Chief complaint: Abdominal Pain Stated complaint: Abdonminal pain LR Time Seen by Provider: 04/12/23 09:27 Mode of Arrival: Ambulatory Source of Information: Patient Limitations: No Limitations Description of Symptoms (Recalled from ER Triage Doc. by RN): rlq abdominal pain. been going on for a few days. 08/06 no vomiting or diarrhea. aches and chills. History of Present Illness HPI narrative: Is a previously healthy 42-year-old male present today with right lower quadrant abdominal pain. Patient states this began very mildly on Thursday but yesterday significantly worsened and caused him to have significant pain overnight keeping him from sleeping thus prompting emergency department visit. He does have a history of cholecystectomy but no other abdominal surgeries in the past. Denies any testicular pain currently. Denies any nausea vomiting diarrhea has had some mild aches and chills. Denies any hematuria or any history of kidney stones. Related Data Home Medications Medication Instructions Recorded Confirmed buspirone 10 mg tablet 10 mg PO BID GASTRIC MOTILITY 06/22/20 10/22/22 Previous Rx's Medication Instructions Recorded amoxicillin 500 mg tablet 500 mg PO Q12H 10 days #20 tabs 10/22/22 amoxicillin 500 mg-potassium 1 tab PO BID 10 days #20 tabs 11/24/22 clavulanate 125 mg tablet (Augmentin) Allergies Allergy/AdvReac Type Severity Reaction Status Date / Time hydromorphone [HYDROMORPHONE] Allergy Severe S-DIFF. Verified 02/08/21 14:18 BREATHING, CHEST TIGHTNESS [facility] Disclaimer: The information contained in this section may have been updated after the patient was seen, as this information can be updated by other users. Social History Smoking Status: Never smoker alcohol intake: current substance use type: denies use current occupational status: employed Travel in the last 8 weeks: None household members: spouse and family housing: house caffeine: No ROS Obtained: Yes All systems reviewed & no additional complaints except as documented Physical Exam General General appearance: alert Respiratory Respiratory exam: Present normal lung sounds bilaterally Cardiovascular Cardiovascular exam: Present regular rate Abdominal Exam Abdominal exam: Present Rovsing's sign and other (Right lower quadrant tenderness palpation with minimal palpation with some involuntary guarding) Neurological Exam Neurological exam: Present alert Medical Decision Making Doug Inquiry Pt receiving controlled substance: No Vital Signs: 04/12/23 09:26 Temperature 98.6 F Temperature Source Oral Pulse Rate [Right Radial] 58 L Respiratory Rate 18 Blood Pressure [Right Arm] 163/94 H Blood Pressure Mean [Right Arm] 117 02 Sat by Pulse Oximetry 98 Oxygen Delivery Method Room Air Lab Data Lab results reviewed: Yes I reviewed the patient's lab results. Lab Results 04/12/23 09:30: WBC 8.9, RBC 4.86, Hgb 16.0, Hct 43.5, MCV 89.6, MCH 32.9 H, MCHC 36.7 H, RDW 12.4, Plt Count 285, MPV 8.8, Neut % (Auto) 75.2, Lymph % (Auto) 17.4, [place] % (Auto) 5.3, Eos % (Auto) 1.4, Baso % (Auto) 0.7, Neut # (Auto) 6.7, Lymph # (Auto) 1.5, [place] # (Auto) 0.5, Eos # (Auto) 0.1, Baso # (Auto) 0.1, Sodium 138, Potassium 4.9, Chloride 100, Carbon Dioxide 33 H, Anion Gap 9.9, BUN 13, Creatinine 0.90, Estimated Creat Clear 134, Estimated GFR 93, Est GFR ( Amer) 112, Glucose 93, Calcium 9.4, Total Bilirubin 1.2, AST 45, ALT 41, Alkaline Phosphatase 52, Total Protein 8.1, Albumin 5.1 H, Globulin 3.0, Albumin/Globulin Ratio 1.7, Urine Color Yellow, Urine Appearance Clear, Urine pH 7.0, Ur Specific [place] <= 1.005, Urine Protein Negative, Urine Glucose (UA) Negative, Urine Ketones Negative, Urine Blood Negative, Urine Nitrate Negative, Urine Bilirubin Negative, Urine Urobilinogen 0.2, Ur Leukocyte Esterase Negative, Urine RBC None, Urine WBC None, Ur Squamous Epith Cells Occasional, Urine Bacteria Trace 04/12/23 09:30 04/12/23 09:30 Orders (Tests/Meds): ED MEDICATIONS Discontinued Medications Generic Name Dose Route Start Last Admin Trade Name Thompson PRN Reason Stop Dose Admin Lactated Ringer's 1,000 mls @ 999 mls/hr 04/12/23 09:45 04/12/23 09:38 Lactated Ringer's 1000 Ml Bag IV 04/12/23 10:45 999 mls/hr .Q1H1M BIA Administration Iopamidol 70 ml 04/12/23 10:11 04/12/23 10:11 Iopamidol-370 (76%);100ml Bottle IV 04/12/23 10:12 70 ml ONCE ONE Administration Ondansetron HCl 4 mg 04/12/23 09:33 04/12/23 09:39 Ondansetron 4mg/2ml Vial IV 04/12/23 09:34 4 mg ONCE ONE Administration Sodium Chloride 10 ml 04/12/23 10:11 04/12/23 10:11 Sodium Chloride 0.9% 10ml Syr (Rad Only) IV 04/12/23 10:12 10 ml ONCE ONE Administration ORDERS Category Date Time Status CT abdomen pelvis w con Stat Cat Scan 04/12/23 09:33 Taken CBC w/Auto Diff [Complete Blood Count Auto Diff] Stat Lab 04/12/23 09:30 Completed CMP [Comprehensive Metabolic Panel] Stat Lab 04/12/23 09:30 Completed UA [Urinalysis and Microscopic] Stat Lab 04/12/23 09:30 Completed Medical Decision Narrative: Is a 42-year-old male with slow progressive worsening of right lower quadrant localized pain and tenderness over the last 24 to 48 hours highly concerning for probable appendicitis. Other things on the differential would include mesenteric adenitis, terminal ileitis, constipation, nephrolithiasis, etc. Will get a contrasted CT scan for further evaluation and treatment. I have ordered IV fluids and nausea medication offered the patient pain medication but he denies this. Will reassess shortly. Assessment 10:[address] scan performed which I first interpreted shows acute appendicitis without perforation or abscess this is consistent with radiology read as well. I spoke with Dr. Genao who will take the patient to the operating room patient is also aware of this. No evidence of sepsis labs otherwise unremarkable. Patient still refusing pain medication. Critical Care Critical Care Time Critical Care Time: Yes Attestation: On 04/12/23, the high probability of a clinically significant, sudden or life threatening deterioration of the following system(s) required my full and direct attention, intervention and personal management. The time I documented below is in addition to time spent performing reported procedures but includes the following listed in this critical care notation. Total Time Total Critical Care Time: 35
[2023-04-12] MEDS: LACTATED RINGERS 1000ML 1,000 ML 999 ML IV (09:38)
[2023-04-12] MEDS: ONDANSETRON 4MG/2ML VIAL 4 MG IV (09:39)
[2023-04-12 09:40] LABS: Microscopic, Urine URINE MICROSCOPIC (MICROSCOPIC)
[2023-04-12 09:41] LABS: Appearance,Urine CLEAR (Clear); Bilirubin,Urine Negative (Negative); Blood, Urine Negative (Negative); Color,Urine YELLOW (Yellow); Glucose,Urine (UA) Negative (Negative); Ketones,Urine Negative (Negative); Leukocyte Esterase,Urine Negative (Negative); Nitrate,Urine Negative (Negative); Protein,Urine Negative (Negative); Specific Gravity, Urine <= 1.005 (1.005-1.030); Urobilinogen,Urine 0.2 EU/dl (0.2)
[2023-04-12 09:42] LABS: Basophils # 0.1 K/mm3 (0-0.2); Basophils % 0.7 % (0.1-2.0); Eosinophils # 0.1 K/mm3 (0.0-0.4); Eosinophils % 1.4 % (0.1-12.0); Hematocrit 43.5 % (42.0-52.0); Lymphocytes # 1.5 K/mm3 (0.7-4.5); Lymphocytes % 17.4 % (10-50); Mean Corpuscular HGB Conc 36.7 g/dL (31.8-35.4); Mean Corpuscular Hemoglobin 32.9 pg (27.0-31.2); Mean Corpuscular Volume 89.6 fl (80-94); Mean Platelet Volume 8.8 fl (7.4-10.4); Monocytes # 0.5 K/mm3 (0.1-1.0); Monocytes % 5.3 % (1.7-9.3); Neutrophils # 6.7 K/mm3 (1.8-7.8); Neutrophils % 75.2 % (37.0-80.0); Platelet Count 285 K/mm3 (142-424); Red Blood Count 4.86 M/mm3 (4.60-6.20); Red Cell Distribution Width 12.4 % (11.5-17.5); White Blood Count 8.9 K/mm3 (4.8-10.8)
[2023-04-12 09:52] LABS: Chloride 100 mmol/L (98-107); Potassium 4.9 mmoL/L (3.5-5.1); Sodium 138 mmol/L (136-145)
[2023-04-12 09:54] LABS: Blood Urea Nitrogen 13 mg/dl (9-20); Creatinine Clearance Estimated 134 mL/min (50-200); Estimated Glomerular Filt Rate 93 ml/min (>60); GFR (African American) 112 ML/MIN (>60)
[2023-04-12 09:55] LABS: Alanine Aminotransferase 41 U/L (12-78); Albumin Level 5.1 g/dl (3.5-5.0); Albumin/Globulin Ratio 1.7 (1.1-1.8); Alkaline Phosphatase 52 U/L (38-126); Anion Gap 9.9 mEq/L (5-15); Aspartate Amino Transferase 45 U/L (17-59); Bilirubin,Total 1.2 mg/dl (0.2-1.3); Calcium 9.4 mg/dl (8.4-10.2); Carbon Dioxide 33 mmol/L (22.0-30.0); Glucose 93 mg/dl (74-100); Total Protein,Serum 8.1 g/dl (6.3-8.2)
[2023-04-12 09:56] LABS: Bacteria,Urine Trace /lpf; Squamous Epithelial Cell,Urine Occasional #/hpf (0-5)
--- NOTE | 2023-04-12 09:59 | PC.NURSE ---
Pt gone to RAD
--- NOTE | 2023-04-12 10:01 | PC.NURSE ---
PT TO CT
--- NOTE | 2023-04-12 10:09 | PC.NURSE ---
PT RETURNED FROM CT, ASSISTED TO BR
[2023-04-12] MEDS: SODIUM CHLORIDE 0.9% 10ML SYR (RAD ONLY) 10 ML IV (10:11)
[2023-04-12] MEDS: IOPAMIDOL-370 (76%);100ML BOTTLE 70 ML IV (10:11)
--- NOTE | 2023-04-12 10:39 | PC.NURSE ---
DR RAMON AT BEDSIDE TO UPDATE PT
--- NOTE | 2023-04-12 10:40 | PC.NURSE ---
Dr. Horta paged
--- NOTE | 2023-04-12 10:41 | PC.NURSE ---
Dr. Caery speaking with Dr. Horta
--- NOTE | 2023-04-12 10:46 | PC.NURSE ---
DR WILSON AT BEDSIDE
--- NOTE | 2023-04-12 11:00 | PC.NURSE ---
[facility] NOTIFIED TO CALL ON-CALL SURGICAL CREW FOR APPY AROUND 1200
--- NOTE | 2023-04-12 11:31 | PC.NURSE ---
PT PROVIDED PILLOW AND TV REMOTE, NO FURTHER NEEDS AT THIS TIME. CALL LIGHT WITHIN REACH
--- NOTE | 2023-04-12 11:57 | EXP.ANES.CKL ---
[facility] Disclaimer: The information contained in this section may have been updated after the patient was seen, as this information can be updated by other users. Social History Smoking Status: Never smoker alcohol intake: current substance use type: denies use current occupational status: employed Travel in the last 8 weeks: None household members: spouse and family housing: house caffeine: No [facility] Anesthesia Checklist Patient Identification Patient Identification: Arm Band Structural Data Admitted From: Home Planned Operative Procedure/s: Laparoscopic Appendectomy Consent for Planned Operative Procedure(s) Verified: Yes Verified Documents: Surgical Consent and History and Physical NPO Status Verified Time NPO: 00:00 Additional verifications Anesthesia Reactions: No Airway Assessment Mallampati Score:: Class II C-Spine Mobility Assessed: Yes TMJ Mobility Assessed: Yes Dentition: Good Dentition Neurological Assessment Level of Consciousness: Awake and Alert Anesthesia Plan Anesthesia Risk discussed: Yes Anesthesia Plan: Verified ASA Class: I (E) Anesthesia Type: General
[2023-04-12] MEDS: CEFTRIAXONE SODIUM 2 GM in 0.9 % SODIUM CHLORIDE 100 ML IV (12:01)
[2023-04-12] MEDS: METRONIDAZ/SOD CHL 500 MG/100 ML PIGGYBACK 100 MG IV (12:01)
[2023-04-12] MEDS: LIDOCAINE 1% 30ML PF VIAL 30 ML (12:31)
[2023-04-12] MEDS: SODIUM CHLORIDE IRRIG SOLUTION 3,000 ML 999 ML IR (12:31)
--- NOTE | 2023-04-12 13:26 | P.OP_ITS ---
Date of procedure: 04/12/23 Pre-op Diagnosis:: Appendicitis Post-op Diagnosis:: Same Procedure performed:: Laparoscopic appendectomy Surgeon:: Ronni Horta MD TAG PRESS OPERATOR:: Félix Cancino Anesthesia: APOLLO Estimated blood loss (mL): 15 Operative findings:: Severe periappendiceal inflammation Enlarged inflamed appendix from cecal margin to tip No definitive evidence of necrosis No definitive evidence of perforation Staple margin appeared intact/viable Operative note:: After informed consent was obtained the patient was taken to the operating room and placed in the supine position. General anesthesia was induced and his abdomen was prepped and draped in a sterile fashion. After infiltration with local anesthetic an infraumbilical incision was made. A Veress needle was placed in position. The abdomen was insufflated. A 12 mm optical trocar was placed in position. Under direct visualization a 5 mm trocar was placed in the suprapubic position and an additional 5 mm trocar was placed in the left lower quadrant. The appendix was noted to be densely adhered to the right lateral sidewall. Careful dissection was utilized to free surrounding tissue and begin elevation of the appendiceal tip. No obvious injury to surrounding tissue (ureter, etc.) was noted. Severe inflammation and enlargement was noted from the base of the appendix to the tip of the appendix. Dissection continued as the mesoappendix was taken with harmonic maisha with careful attention to maintaining dissection at the margin of the appendiceal tissue. No obvious sign of perforation noted. Although severe inflammation and enlargement was noted throughout, the appendiceal base/cecal margin appeared viable. An Endopath 45 stapling device was utilized to transect the appendix at its base. The staple margin appeared viable and intact. No obvious sign of injury or bleeding noted. The right lower quadrant was thoroughly irrigated. No sign of purulence or abscess collection noted. Fascia at the infraumbilical trocar site was r eapproximated utilizing the Adelso-close device. Pneumoperitoneum was released as the remaining trocars were removed. All wounds were irrigated and skin was reapproximated with interrupted Vicryl in a subcuticular fashion. Steri-Strips were applied and the patient was transferred to recovery in stable condition after extubation. Condition: stable Disposition: PACU Specimens:: Appendix Complications:: No immediate
--- NOTE | 2023-04-12 13:35 | P.PNANES_ITS ---
[facility] Anesthesia Record Part I Anesthesia Record I Intake, IV Amount: 1,200 Hydration: Adequate Estimated blood loss (mL): 10 Urine output (mL): 400 Blood Products used (#): none Blood Pressure: 133/75 SaO2: 93 Pulse Rate: 75 Airway Patency: Patent Respiratory Rate: 16 Temperature: 98.2 F Patient is:: Drowsy and Stable Stable to PACU at:: 13:30
[2023-04-12] MEDS: MORPHINE 2MG/ML SYRINGE 2 MG IV ×2 (13:49→13:57)
[2023-04-12] MEDS: SODIUM CHLORIDE 0.9% 25ML BAG 25 ML IV ×2 (13:50→14:10)
[2023-04-12] MEDS: PROMETHAZINE HCL 25MG/ML 1ML VIAL 6.25 MG IV ×2 (13:50→13:58)
[2023-04-12] MEDS: SCOPOLAMINE 1.5MG/72HRS PATCH 1 EACH TD (14:36)
--- NOTE | 2023-04-12 14:40 | SUR.PHASEII ---
Pt requested a scopolamine patch. T.O. for x1 patch per Kyleigh Cancino CRNA. Order carried out, medication instructions given to patient and spouse. Both verbalized understanding. Pt currently resting in bed, IV is out, pt is sipping on summer eduardo. States he is almost ready, just wants to take things slow. This RN went over d/c instructions with spouse, she verbalized understanding. Call light within reach, spouse at bedside.
== END 2023-04-12 14:59 | disposition home or self-care (01) ==
LOC: ER 11:09 → OR 12:08
PROVIDERS: Emergency Provider Student in an Organized Health Care Education/Training Program; PCP Nurse Practitioner Family; Visit Provider Surgery
PROC: 0DTJ4ZZ Resection of Appendix, Percutaneous Endoscopic Approach (ICD-10-PCS; CPT 44970; principal; 2023-04-12 12:00)
DX: K35.80 Unspecified acute appendicitis (principal)
CPT/HCPCS: 44970; 74177; 80053; 81001; 85025; J0696; J2405; Q9967

== ENCOUNTER 2023-05-04 16:00 | Outpatient (CLI) | payer OTHER, SELFPAY ==
[2023-05-04 17:11] LABS: Basophils % 0.5 % (0.1-2.0); Eosinophils # 0.1 K/mm3 (0.0-0.4); Eosinophils % 1.2 % (0.1-12.0); Hematocrit 43.3 % (42.0-52.0); Hemoglobin 15.5 g/dL (14.1-18.0); Lymphocytes # 1.6 K/mm3 (0.7-4.5); Lymphocytes % 21.7 % (10-50); Mean Corpuscular HGB Conc 35.8 g/dL (31.8-35.4); Mean Corpuscular Hemoglobin 32.8 pg (27.0-31.2); Mean Corpuscular Volume 91.6 fl (80-94); Mean Platelet Volume 8.4 fl (7.4-10.4); Monocytes # 0.4 K/mm3 (0.1-1.0); Neutrophils # 5.4 K/mm3 (1.8-7.8); Neutrophils % 71.6 % (37.0-80.0); Platelet Count 286 K/mm3 (142-424); Red Blood Count 4.72 M/mm3 (4.60-6.20); Red Cell Distribution Width 12.2 % (11.5-17.5); White Blood Count 7.5 K/mm3 (4.8-10.8)
[2023-05-04 17:29] LABS: Microalbumin/Creatinine Ratio 11.6
[2023-05-04 17:33] LABS: Creatinine,Urine Random 53 mg/dL (Not Estab.)
[2023-05-04 17:44] LABS: Alanine Aminotransferase 32 U/L (12-78); Alkaline Phosphatase 66 U/L (38-126); Anion Gap 12.6 mEq/L (5-15); Aspartate Amino Transferase 40 U/L (17-59); Bilirubin,Indirect 0.6 mg/dL (0.0-0.9); Bilirubin,Total 0.6 mg/dl (0.2-1.3); Bilirubin,Unconjugated 0.6 mg/dL (0.0-1.1); Blood Urea Nitrogen 16 mg/dl (9-20); Calcium 9.8 mg/dl (8.4-10.2); Carbon Dioxide 30 mmol/L (22.0-30.0); Chloride 103 mmol/L (98-107); Chol/HDL Ratio 4.7 (1-3.5); Cholesterol 213 mg/dl (140-200); Estimated Glomerular Filt Rate 93 ml/min (>60); GFR (African American) 112 ML/MIN (>60); Glucose 87 mg/dl (74-100); HDL Cholesterol 45 mg/dl (40-60); Magnesium 2.2 mg/dl (1.6-2.3); Potassium 4.6 mmoL/L (3.5-5.1); Sodium 141 mmol/L (136-145); Total Protein,Serum 7.7 g/dl (6.3-8.2); Triglycerides 177 mg/dl (30-150); VLDL Cholesterol 35 mg/dL (0-40)
[2023-05-04 17:57] LABS: Direct LDL Cholesterol 121.79 mg/dL (100-129)
[2023-05-04 18:15] LABS: Thyroid Stimulating Hormone 2.47 uIU/mL (0.465-4.68)
== END 2023-05-04 23:59 ==
LOC: LAB 16:00
PROVIDERS: PCP Nurse Practitioner Family; Visit Provider Internal Medicine
DX: R00.2 Palpitations (principal); R06.00 Dyspnea, unspecified; R07.9 Chest pain, unspecified
CPT/HCPCS: 36415; 80048; 80061; 80076; 82043; 82570; 83735; 84439; 84443; 85025; 93270

== ENCOUNTER 2023-05-15 12:17 | Outpatient (CLI) | payer OTHER, SELFPAY ==
--- NOTE | 2023-05-15 12:17 | CT_ITS ---
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 A noncontrast coronary calcium scan was performed. A CT attenuation threshold of 130 Hounsfield units (HU) was used for the detection of calcium in contiguous voxels of 1 sq mm in area to be counted as individual lesions. Bolus tracking in the ascending aorta with a threshold of 180 HU was performed. Immediately afterwards, ECG synchronized cardiac CT was then performed from the cardiac base to apex using retrospective gating with ECG tube current modulation. A total of 85 mL of Isovue 370 mg/mL contrast medium was administered at 5 mL/sec followed by a saline flush using a biphasic injection protocol. A tube voltage of 120 KVp was used. The patient received the following medications prior to the cardiac CT. 0.8 mg of sublingual nitroglycerin The average heart rate at the time of acquisition was 50 bpm and regular. Image Reconstruction Transaxial images were reconstructed at 0.67 mm slide thickness. Data was reviewed interactively on an advanced workstation capable of 2 and 3-dimensional displays in all conventional reconstruction formats, including multiplanar reformations, maximum intensity projections, curved multiplanar reformations, and volume rendered reconstructions. When applicable, selected routine images describing the relevant coronary anatomy and pathology were saved and sent to PACS. Complications None Technical Quality Overall image quality was good. Coronary artery opacification was adequate. Total DLP (Dose-Length Product) is 1662.9 mGy-cm. The reported value represents the total of one or more individual components during the CT acquisition of this date and at this time, and as such, the same value may appear in more than one CT report depending on the interpreting/reporting physicians. COMPARISON None FINDINGS CT Coronary Calcium Scoring LMA (Left Main Artery) = 0 LAD (Left Anterior Descending) = 0 LCX (Left Coronary Circumflex) = 0 RCA (Right Coronary Artery) = 0 Total Calcium Score = 0 using the AJ-130 method. The interpretation of the calcium heart score is based on the following continuum*: 0 = no calcified plaque detected (risk of coronary artery disease is very low ??? less than 5%) 1-10 = calcium detected in extremely minimal levels (risk of coronary diseases is still low ??? less than 10%) 11-100 = mild levels of plaque detected with certainty (mild or minimal narrowing of heart arteries is likely) 101-400 = definite,at least moderate levels of plaque detected (relatively high risk of a heart attack within 3-5 years) >401-999 = extensive levels of plaque detected (high risk of heart attack, high levels of vascular disease are present, high likelihood of at least one significant coronary narrowing) *The calcium heart score quantifies the burden of coronary calcification/plaque in the coronary arteries. The calcium heart score is not able to evaluate the presence or burden of non-calcified (i.e. soft) plaque. There is no identifiable calcification in the aortic valve, mitral annulus or mitral valve, pericardium, or myocardium. Coronary CT Angiography The coronary arterial system is right dominant. Quantitative Stenosis Grading: Left Main (LM): The left main originates normally from the left sinus of Valsalva. The LM triifurcates into the left anterior descending artery, ramus intermedius, and left circumflex artery. The LM is patent with no evidence of atherosclerosis. Left Anterior Descending (LAD) and Diagonal Branches: The LAD gives off 3 diagonal branch(es). The LAD and its branches are patent with no evidence of atherosclerosis. There is no evidence of LAD-myocardial bridge. Ramus-intermedius (RI): The RI is patent. Left Circumflex (LCX) and Obtuse Marginals (OM): The LCX gives off 2 Obtuse Marginal (OM) branch(es). The LCX and its branches are patent with no evidence of atherosclerosis. Right Coronary Artery (RCA): The RCA originates normally from the right sinus of Valsalva. The RCA gives off a posterior descending artery (PDA) and posterolateral (PL) branches. The RCA and its branches are patent with no evidence of atherosclerosis. Non-Coronary Cardiac Findings: Analysis of the left ventricular (LV) structure and function was performed after 3-D reconstruction of the LV from axial images, with user-corrected automatic contouring for assessment of LV volumes and user-defined reconstruction from oblique planes for measurement of 3-D cardiac structure and function. -The left ventricle systolic function is normal (LVEF 66%). -There is no left atrial appendage filling defect. Two right pulmonary veins and two left pulmonary veins drain normally into the left atrium. -No pericardial thickening or calcification. -Central and branch pulmonary arteries in the [id number] are unremarkable. -Thoracic aorta within the visualized thoracic aortic-branches in the [id number] is unremarkable. Extracardiac Structures No significant extra-cardiac findings. Note, however, that this study is focused on the cardiac findings. IMPRESSION -Absence of coronary calcification with an Agatston score = 0 using the AJ-130 method. -No evidence of significant flow-limiting atherosclerosis of the coronary arteries. -No evidence of coronary anomalies. -CAD-RADS 0. Management recommendations per ACC/AHA guidelines*, as clinically appropriate. *Recommendations: CAD RADS 0: Reassurance. Consider non-atherosclerotic causes of chest pain. CAD RADS 1: Consider non-atherosclerotic causes of chest pain. Consider preventive therapy and risk factor modification. CAD RADS 2: Consider non-atherosclerotic causes of chest pain. Consider preventive therapy and risk factor modification, particularly for patients with nonobstructive plaque in multiple segments. CAD RADS 3: Consider further functional testing. Consider symptom-guided anti-ischemic and preventive pharmacotherapy as well as risk factor modification per published guideline statements. CAD RADS 4A: Consider further functional testing or invasive coronary angiography with revascularization per published guideline statements. Consider symptom-guided anti-ischemic and preventive pharmacotherapy as well as risk factor modification per published guideline statements. CAD RADS 4B: Invasive coronary angiography recommended with revascularization per published guideline statements. Consider symptom-guided anti-ischemic and preventive pharmacotherapy as well as risk factor modification per published guideline statements. CAD RADS 5: Consider invasive angiography and/or viability assessment with revascularization per published guideline statements. Consider symptom-guided anti-ischemic and preventive pharmacotherapy as well as risk factor modification per published guideline statements. CRITICAL RESULT None COMMUNICATION Per this written report The coronary and cardiac findings of this CCTA were reviewed, reported, and signed by Clayton Cruz MD ([employer]) Conclusion Electronically signed by : Shannen Curz MD 05/18/2023 11:37:24
[2023-05-15 12:37] VITALS: BMI 25.0
[2023-05-15 12:47] VITALS: BP 153/107; PULSE 48; RESP 16; O2SAT 100
[2023-05-15] MEDS: NITROGLYCERIN 0.4MG SL TABLET 0.800000000000000044 MG SL (12:47)
[2023-05-15 12:50] VITALS: BP 151/84; PULSE 50; RESP 16; O2SAT 100
[2023-05-15 13:00] VITALS: BP 134/78; PULSE 53; RESP 18; O2SAT 100
[2023-05-15 13:07] VITALS: BP 146/70; PULSE 57; RESP 16; O2SAT 100
[2023-05-15] MEDS: IOPAMIDOL-370 (76%);100ML BOTTLE 85 ML IV (13:08)
[2023-05-15] MEDS: 0.9 % SODIUM CHLORIDE 50 ML VIAL IV (13:08)
--- NOTE | 2023-05-15 13:10 | CA_ITS ---
APPROVED REPORT EXAM: Comprehensive 2D, Doppler, and color-flow Echocardiogram Grinder Lap: Rosio Umanzor RT(R) Ht: 6 ft 2 in Wt: 195lbs BSA: 2.15 BP: 146/86 mmHg Indications: CP, dyspnea, palpitations, sinus bradycardia noted on echo and heart monitor. 2D Dimensions LVEF (Morales's) 62.00 % M: 52 - 72 LV Volume 133.90 mL M: 62 - 150 LV Volume Index 62.3 mL/m2 M: 34 - 74 LA Volume 25.70 mL LA Volume Index 11.95 mL/m2 (M/F) 16-34 EF AP4 62.00 % EF AP2 60.9 % EF BP 62.0 % GL Strain -19.0 % M-Mode Dimensions RVDd 3.03 cm (0.9-2.6) LA Diam 3.47 cm (1.9-4.0) LVDd 5.26 cm (3.5-5.7) LVDs 3.80 cm (3.5-5.7) IVSd 0.88 cm (0.6-1.1) PWd 0.80 cm (0.6-1.1) EF (Teich) 53.40% FS 27.80% EDV (Teich) 133.00 mL ESV (Teich) 62.00 mL LV Diastology E Decel Time 210 (160-240 msec) E/A Ratio 1.2 Mitral Valve MV E Max Carlin. 98.0 (40-130 cm/s) MV A Velocity 80.0 (40-130 cm/s) E/A Ratio 1.21 MV PHT 62.0 ms Left Ventricle The left ventricle is normal size. The left ventricular systolic function is normal. The left ventricular ejection fraction is within the normal range. There is normal left ventricular wall thickness. There is normal LV segmental wall motion. The left ventricular diastolic function is normal. LVEF is 60%. Right Ventricle The right ventricle is normal size. The right ventricular systolic function is normal. Atria The left atrium size is normal. The right atrium size is normal. There is no Doppler evidence of interatrial shunt. Aortic Valve The aortic valve opens well. The aortic valve is trileaflet. There is no aortic valvular stenosis. Trace aortic regurgitation. Mitral Valve The mitral valve is normal in structure. No evidence of mitral valve stenosis. Trace mitral regurgitation. Tricuspid Valve The tricuspid valve leaflets are thin and pliable. Trace tricuspid regurgitation. RVSP is normal at 20-25 mmHg Pulmonic Valve The pulmonary valve is normal in structure. Trace pulmonic regurgitation. Great Vessels The aortic root is normal in size. The ascending aorta is normal in size. IVC is normal in size and collapses >50% with inspiration. Pericardium There is no pericardial effusion. Other Information Study Quality: Adequate Conclusion Normal biventricular systolic function (LVEF 60%). No significant valvular stenosis or regurgitation. Electronically signed by : hSannen Cruz MD 05/15/2023 17:59:37
== END 2023-05-15 13:15 | disposition home or self-care (01) ==
PROVIDERS: PCP Nurse Practitioner Family; Visit Provider Internal Medicine
DX: R00.2 Palpitations (principal); R06.00 Dyspnea, unspecified; R07.9 Chest pain, unspecified
CPT/HCPCS: 75571; 75574; 93306; Q9967

== ENCOUNTER 2023-07-24 09:23 | Emergency (ER) | payer OTHER, SELFPAY ==
[2023-07-24 09:45] VITALS: BP 132/79; PULSE 46; RESP 18; TEMP 36.7; O2SAT 100; BMI 25.0
--- NOTE | 2023-07-24 10:07 | ED_ITS ---
Discharge Plan Disposition Patient Disposition: Home, Self-Care Condition: Good Prescriptions Prescriptions: New azithromycin [Zithromax Z-Colby] 250 mg tablet See Rx Instructions .ROUTE .COMPLEX 5 Days Qty: 6 0RF Rx Instructions: For 250 mg dose pack: take 500 mg today (day 1), then 250 mg for 4 days (days 2-5) methylprednisolone [Medrol (Colby)] 4 mg tablets,dose pack See Rx Instructions .Route .COMPLEX 6 Days Qty: 21 0RF Rx Instructions: taper pack; No Action buspirone 10 mg tablet 10 mg PO BID fluticasone propionate 50 mcg/actuation spray,suspension See Rx Instructions .ROUTE .COMPLEX Patient Comments: INSTILL 2 SPRAYS IN EACH NOSTRIL EVERY DAY Rx Instructions: INSTILL 2 SPRAYS IN EACH NOSTRIL EVERY DAY Referrals Follow up/Referrals: Joana Mcfadden APRN [Primary Care Provider] - See instructions Activity Restrictions/Add. Instructions Additional Instructions/Restrictions: Start oral steriods tomorrow *Monitor Temp, Over the counter Motrin or Tylenol as directed/as needed Tylenol every 4 hours and Motrin every 6 hours (as long as your family doctor has told you that you can take it) for fever or pain. and straight to ER if unable to lower temp less than 101.0 after medication given *Warm salt water gargles may help to soothe the throat *Throat Lozenges? *Warm fluids like tea with honey may help to soothe the throat? *Sleep elevated *Humidifier/Vaporizer Follow up IMMEDIATELY for new or worsening symptoms or no Noticeable improvement over the next 48-72 hours. 911 for difficulty breathing or swallowing Clinical Impressions Clinical Impression: Sinusitis Qualifiers: Sinusitis location: unspecified location Chronicity: unspecified Qualified Code(s): J32.9 - Chronic sinusitis, unspecified Instructions Patient Instructions: Sinusitis, DI for Sinusitis Discharge ED Provider: Jocelynn Benz [facility] General Stated complaint: congetion, body aches Mode of Arrival: Ambulatory Source of Information: Patient Limitations: No Limitations Time Seen by Provider: 07/24/23 10:07 Description of Symptoms (Recalled from Triage Doc. by RN): Pt's symptoms are JOSUE, ear pressure, body aches, and nasal congestion. HEENT Symptoms (Recalled from RN notes): Yes Resp Symptoms (Recalled from RN notes): No Skin Symptoms (Recalled from RN notes): No MS Symptoms (Recalled from RN notes): No Functional Status (Recalled from RN notes): n/a History of Present Illness Provider Complaint: Patient states that he has been having sinus pain and pressure, pressure like feeling in his ears, headache and drainage for several days States today he was feeling worse so he came in to get checked Related Data Home Medications Medication Instructions Recorded Confirmed buspirone 10 mg tablet 10 mg PO BID GASTRIC MOTILITY 06/22/20 07/24/23 fluticasone propionate 50 See Rx Instructions .Route .COMPLEX 07/24/23 07/24/23 mcg/actuation nasal spray,suspension Previous Rx's Medication Instructions Recorded azithromycin 250 mg tablet See Rx Instructions PO .COMPLEX 5 07/24/23 (Zithromax Z-Colby) days #6 tabs methylprednisolone 4 mg tablets in See Rx Instructions .Route 07/24/23 a dose pack (Medrol (Colby)) .COMPLEX 6 days #21 tabs Allergies Allergy/AdvReac Type Severity Reaction Status Date / Time hydromorphone [HYDROMORPHONE] Allergy Severe S-DIFF. Verified 07/24/23 09:57 BREATHING, CHEST TIGHTNESS Worker's Comp Is this a Worker's Comp case?: No [facility] Disclaimer: The information contained in this section may have been updated after the patient was seen, as this information can be updated by other users. Medical History (Updated 07/24/23 @ 10:15 by Jocelynn Benz APRN) Dyspnea Palpitations Surgical History History of appendectomy Family History Other No significant family history Social History Smoking Status: Never smoker alcohol intake: current alcohol intake frequency: a few times a week substance use type: denies use current occupational status: employed Travel in the last 8 weeks: None household members: spouse and family housing: house caffeine: No ROS Obtained: Yes All systems reviewed & no additional complaints except as documented and Yes Systems reviewed as appropriate & no additional complaints except as documented Constitutional Constitutional: Reports system reviewed and no additional complaints, except as documented and Reports as per HPI ENT Ears, Nose, Mouth, and Throat: Reports system reviewed and no additional complaints, except as documented, Reports as per HPI, Reports otalgia, Reports sinus pain and Reports sinus pressure Cardiovascular Cardiovascular: Reports system reviewed and no additional complaints, except as documented and Reports as per HPI Respiratory Respiratory: Reports system reviewed and no additional complaints, except as documented, Reports as per HPI and Reports cough Gastrointestinal Gastrointestingal: Reports system reviewed and no additional complaints, except as documented and as per HPI Physical Exam General General appearance: alert and in no apparent distress ENT ENT exam: Present mucous membranes moist Expanded ENT Exam Nose exam: Present sinus tenderness Throat exam: Present other (Pharyngeal erythema noted with PND) Respiratory Respiratory exam: Present normal lung sounds bilaterally; Absent respiratory distress or wheezes Cardiovascular Cardiovascular exam: Present regular rate, normal rhythm and normal heart sounds Neurological Exam Neurological exam: Present alert, oriented X3 and normal gait Medical Decision Making Doug Inquiry Pt receiving controlled substance: No Doug was queried for this patient: No Vital Signs: 07/24/23 09:45 Temperature 98.1 F Temperature Source Oral Pulse Rate [Right Radial] 46 L Respiratory Rate 18 Blood Pressure [Right Arm] 132/79 Blood Pressure Mean [Right Arm] 96 Blood Pressure Source [Right Arm] Automatic Cuff Blood Pressure Position [Right Arm] Sitting 02 Sat by Pulse Oximetry 100 Oxygen Delivery Method Room Air
[2023-07-24] MEDS: METHYLPREDNISOLONE SOD SUCC 125MG VIAL 125 MG IM (10:15)
[2023-07-24 10:33] VITALS: BP 132/79; PULSE 46; RESP 18; TEMP 36.7; O2SAT 100
== END 2023-07-24 10:33 | disposition home or self-care (01) ==
PROVIDERS: Emergency Provider Nurse Practitioner; PCP Nurse Practitioner Family
DX: J01.90 Acute sinusitis, unspecified (principal); R51.9 Headache, unspecified; H92.03 Otalgia, bilateral; R09.81 Nasal congestion
CPT/HCPCS: 96372; 99212; 99214; G0463

== ENCOUNTER 2024-02-03 10:24 | Outpatient (CLI) | payer OTHER, SELFPAY ==
--- NOTE | 2024-02-03 10:27 | XR_ITS ---
PROCEDURE INFORMATION: Exam: XR Left Elbow Exam date and time: 02/03/2024 10:28 AM Age: 43 years old Clinical indication: Pain; Elbow; Left TECHNIQUE: Imaging protocol: Radiologic exam of the left elbow. Views: 3 or more views. COMPARISON: No relevant prior studies available. FINDINGS: Bones/joints: No visible fracture or dislocation. No joint effusion Soft tissues: Normal. IMPRESSION: No visible fracture or dislocation.
--- NOTE | 2024-02-03 10:27 | XR_ITS ---
PROCEDURE INFORMATION: Exam: XR Right Knee Exam date and time: 02/03/2024 10:28 AM Age: 43 years old Clinical indication: Pain; Knee; Right; Additional info: Knee pain TECHNIQUE: Imaging protocol: Radiologic exam of the right knee. Views: 3 views. COMPARISON: CR XR KNEE RT 3V 02/03/2024 10:28 AM FINDINGS: Bones/joints: No visible fracture or dislocation. No joint effusion Soft tissues: Normal. IMPRESSION: No visible fracture or dislocation.
== END 2024-02-03 23:59 | disposition home or self-care (01) ==
LOC: RAD 10:25
PROVIDERS: PCP Nurse Practitioner Family; Visit Provider Orthopaedic Surgery
DX: M25.522 Pain in left elbow (principal); M25.561 Pain in right knee
CPT/HCPCS: 73080; 73562

== ENCOUNTER 2024-03-18 11:50 | Outpatient (CLI) | payer OTHER, SELFPAY ==
[2024-03-18 12:04] LABS: Microscopic, Urine URINE MICROSCOPIC (MICROSCOPIC)
[2024-03-18 12:19] LABS: Appearance,Urine CLEAR (Clear); Bilirubin,Urine Negative (Negative); Blood, Urine Negative (Negative); Color,Urine YELLOW (Yellow); Glucose,Urine (UA) Negative (Negative); Ketones,Urine Negative (Negative); Leukocyte Esterase,Urine Negative (Negative); Nitrate,Urine Negative (Negative); Protein,Urine Negative (Negative); Specific Gravity, Urine <= 1.005 (1.005-1.030); Urobilinogen,Urine 0.2 EU/dl (0.2)
[2024-03-18 12:32] LABS: Squamous Epithelial Cell,Urine Occasional #/hpf (0-5)
== END 2024-03-18 23:59 | disposition home or self-care (01) ==
LOC: LAB 11:52
PROVIDERS: PCP Nurse Practitioner Family; Visit Provider Nurse Practitioner Family
DX: N41.0 Acute prostatitis (principal)
CPT/HCPCS: 81001; 87086

== ENCOUNTER 2024-06-30 07:45 | Outpatient (CLI) | payer OTHER, SELFPAY ==
[2024-06-30 08:10] LABS: Basophils # 0.1 K/mm3 (0-0.2); Basophils % 0.8 % (0.1-2.0); Eosinophils # 0.1 K/mm3 (0.0-0.4); Eosinophils % 1.5 % (0.1-12.0); Hematocrit 41.6 % (42.0-52.0); Hemoglobin 14.4 g/dL (14.1-18.0); Lymphocytes # 1.3 K/mm3 (0.7-4.5); Lymphocytes % 17.7 % (10-50); Mean Corpuscular HGB Conc 34.6 g/dL (31.8-35.4); Mean Corpuscular Volume 89.7 fl (80-94); Monocytes # 0.4 K/mm3 (0.1-1.0); Monocytes % 6.1 % (1.7-9.3); Neutrophils # 5.3 K/mm3 (1.8-7.8); Neutrophils % 73.6 % (37.0-80.0); Platelet Count 316 K/mm3 (142-424); Red Blood Count 4.64 M/mm3 (4.60-6.20); Red Cell Distribution Width 11.3 % (11.5-17.5); White Blood Count 7.2 K/mm3 (4.8-10.8)
[2024-06-30 09:03] LABS: Albumin Level 4.9 g/dl (3.5-5.0); Chloride 101 mmol/L (98-107); Potassium 5.4 mmoL/L (3.5-5.1); Sodium 142 mmol/L (136-145)
[2024-06-30 09:05] LABS: Alanine Aminotransferase 33 U/L (12-78); Aspartate Amino Transferase 34 U/L (17-59); Blood Urea Nitrogen 17 mg/dl (9-20); Estimated Glomerular Filt Rate 92 ml/min (>60); GFR (African American) 111 ML/MIN (>60)
[2024-06-30 09:06] LABS: Albumin/Globulin Ratio 1.8 (1.1-1.8); Alkaline Phosphatase 51 U/L (38-126); Anion Gap 12.4 mEq/L (5-15); Bilirubin,Total 1.3 mg/dl (0.2-1.3); Calcium 10.4 mg/dl (8.4-10.2); Carbon Dioxide 34 mmol/L (22.0-30.0); Chol/HDL Ratio 4.9 (1-3.5); Cholesterol 195 mg/dl (140-200); Globulin 2.8 g/dL (1.3-3.2); Glucose 90 mg/dl (74-100); HDL Cholesterol 40 mg/dl (40-60); Total Protein,Serum 7.7 g/dl (6.3-8.2); Triglycerides 85 mg/dl (30-150); VLDL Cholesterol 17 mg/dL (0-40)
[2024-06-30 09:17] LABS: Direct LDL Cholesterol 125.68 mg/dL (100-129)
== END 2024-06-30 23:59 | disposition home or self-care (01) ==
LOC: LAB 07:47
PROVIDERS: PCP Nurse Practitioner Family; Visit Provider Nurse Practitioner Family
DX: Z00.00 Encounter for general adult medical examination without abnormal findings (principal)
CPT/HCPCS: 36415; 80053; 80061; 85025

== ENCOUNTER 2024-07-12 10:54 | Outpatient (CLI) | payer OTHER, SELFPAY ==
--- NOTE | 2024-07-12 10:57 | XR_ITS ---
FINAL REPORT CLINICAL HISTORY: PERSISTENT COUGH x3 weeks FINDINGS: PA and lateral views of the chest are obtained. There is no prior exam for comparison. The cardiac and mediastinal silhouettes are within normal limits. The lungs are clear. There is no pleural effusion, pneumothorax, or acute osseous abnormality. IMPRESSION: No radiographic evidence of acute cardiac or pulmonary disease. Reviewed, Interpreted and Dictated by Maria T Deleon MD Transcribed by Faith Cisse Authenticated and [facility]
== END 2024-07-12 23:59 | disposition home or self-care (01) ==
LOC: RAD 10:55
PROVIDERS: PCP Nurse Practitioner Family; Visit Provider Nurse Practitioner Family
DX: R05.3 Chronic cough (principal)
CPT/HCPCS: 71046

== ENCOUNTER 2024-09-16 07:32 | Outpatient (CLI) | payer OTHER, SELFPAY ==
--- OUTSIDE RECORDS SUMMARY | 2024-06-27 11:00 | XMS_ITS ---
Author Organization [facility] Address [address] [place] [address] Care Team Providers Care Account Executive Trainee Name Role Phone unknown, Unknown Primary Care Provider Unavailab le Corie Reyez Unavailable [phone] Corie Reyez Unavailable Unavailable Allergies No Known Allergies REASON FOR VISIT Lumbar Spine- wants Prolo Problems Problem Type SNOMED Code ICD Code Onset Dates Problem Status W/U Status Risk Notes Problem Medial epicondyli tis, left elbow WRM (M77.02) Active confirmed ultrasound demonstrated medial epicondylar tear of the common tendon. Conducted prolo injection today. Corie Reyez 06/27/2024 05:10:06 PM > Vital Signs Blood pressure systolic 161 mm Hg 06/28/19 25 Blood pressure diastolic 77 mm Hg 025 Height 75 in 06/27/2024 Weight 195 lbs 06/27/2024 BMI 24.37 BMI 06/27/2024 Procedures Procedure Date Ordered Date Performed Result Body Sit e R - Prolotherapy 06/27/2024 06/27/2024 N/A Encounters Encounter Location Date Provider Diagnosis [facility] [address] [place] [address] 06/27/2024 Corie Reyez Lumbar spondylosis M47.816 and Medial epicondylitis, left elbow WRM M77.02 Assessments Encounter Date Diagnosis (ICD Code) Assessment Notes Treatment Notes Treatment Clinical Notes Section Notes 06/27/2024 Lumbar spondylosis (ICD-10 - M47.816) MsK US appreciated tears in the TLF at the L4/5 spinous process and left PSIS. Exam suggests right L5-S1 instability and left L4-5 instability. Will conduct prolo today. 06/27/2024 Medial epicondylitis, left elbow WRM (ICD-10 - M77.02) ultrasound demonstrated medial epicondylar tear of the common tendon. Conducted prolo injection today. Corie Reyez 06/27/2024 05:10:06 PM > Plan Of Treatment Pending Test Test Name Order Date R - Prolotherapy 06/27/2024 Next Appt Details Follow Up: prn, Reason: Progress Notes * WAGGONERMAURIZIO MENDOZADOB:[birth year] (43 yo M)Acc No.[id number]:06/27/2024 Patient: MAURIZIO NGUYEN Provider: Ariadna Reyez MD :1980 A ge:43 Y S ex:Male Date:06/27/2024 Address:[facility] [place], [id number] Pcp:Unknown unknown Check In:03:04 PM ESTCheck O ut:03:47 PM EST Subjective: * Chief Complaints: * L umbar Spine- wants Prolo * HPI: E st. Pt. Check In Questionnaire: Patient has noted more pain on levels L5-S1 he wants to discuss possible reasons why it been aggravated. s/p PRP w/ PL Epidural 01/2022 and has been active w/ PT including free weights. Has had a couple episodes of anterior pelvic tilt causing a jolt of pain. Episodes are brief w/o lingering effect. No loss of motor control or urinary issues. Last prolo injection lasted 1.5 years. * Medical History: * Surgical History: D iscectomy L5/S1 07/2017 * Hospitalization/Major Diagno stic Procedure: D enies Past Hospitalization * Family History: N o Family History documented.. * Medications: N one * Allergies: N .K.D.A.no[Allergies Verified] Objective: * Vitals: H t:75in, Wt:195lbs, BMI:24.37BMI, BP:161/77mm Hg, HR:56/min, Pain Scale:0. * Examination: G eneral examination: General appearance: i n no acute distress, no suicidal ideation, normal affect. Gait and Posture N ormal Gait. Neck, thyroid : n ormal ROM of C spine for age, non-tender, normal alignment. Heart: n o signs of cyanosis or circulatory insufficiency.? Lungs: n o evidence of respiratory distress. Abdomen: n ormal. Neurologic exam: n o evidence of sedation. Extremities: n o clubbing, edema, or rash. Skin: n o obvious bruise or breakage. ? M SK-N (Musculoskeletal & Neuropathy): Lumbar: B ILATERAL:, Lower Lumbar and sacral (L4-S1), FACETS - Tenderness over facet joints, limited extension and rotation that causes increased pain, facet loading (Spurling test) positive, no numbness/weakness/reflex changes.. Elbow: L EFT:MEDIAL EPICONDYLITIS (TENDON) - Golfer's Elbow Test positive (tender medial epicondyle with resisted wrist flexion). . Assessment: * Assessment: 1. L umbar spondylosis - M47.816 S pecify :Right L5-S1 discectomy 2018 w/ subsequent PRP + PL epidural with improvements N otes :MsK US appreciated tears in the TLF at the L4/5 spinous process and left PSIS. Exam suggests right L5-S1 instability and left L4-5 instability. Will conduct prolo today. 2. M edial epicondylitis, left elbow* - M77.02 N otes :ultrasound demonstrated medial epicondylar tear of the common tendon. Conducted prolo injection today. Corie Reyez 06/27/2024 05:10:06 PM > Plan: * Treatment: * Procedure Codes: * Follow Up: p rn * Billing Information: * Visit Code: 25060 OV4: Level4 Office Visit (30-39min). * Procedure Codes: Care Plan Details* * Sign off status: Completed true * Provider: Ariadna Reyez MD Date: 0 06/27/2024 Generated for Analia valdez/Chintan/Fernandoitting on: 0 09/16/2024 07:33 AM EDT History and Physical Notes * HPI (History of Present Illness) Category Sub-Category Detail Notes Category Not es Est. Pt. Check In Questionnaire Patient has noted mo re pain on levels L5-S1 he wants to discuss possible reasons why it been aggravated. s/p PRP w/ PL Epidural 01/2022 and has been active w/ PT including free weights. Has had a couple episodes of anterior pelvic tilt causing a jolt of pain. Episodes are brief w/o lingering effect. No loss of motor control or urinary issues. Last prolo injection lasted 1.5 years. Examination Category Sub-Category Detail Notes Category Not es General examination Neck, thyroid : normal ROM o f C spine for age, non-tender, normal alignment Heart: no signs of cyanosis or circulatory insufficiency Lungs: no evidence of respi ratory distress Extremities: no clubbing, edema, or rash General appearance: in no acute distress , no suicidal ideation, normal affect Skin: no obvious bruise or breakage Neurologic exam: no evidence of sedat ion Abdomen: normal Gait and Posture Normal Gait MSK-N (Musculoskeletal & Neuropathy) Lumbar: BILATERAL:, Lower Lumbar and sacral (L4-S1), FACETS - Tenderness over facet joints, limited extension and rotation that causes increased pain, facet loading (Spurling test) positive, no numbness/weakness/reflex changes. Elbow: LEFT: MEDIAL EPICOND YLITIS (TENDON) - Golfer's Elbow Test positive (tender medial epicondyle with resisted wrist flexion).
--- OUTSIDE RECORDS SUMMARY | 2024-06-27 11:20 | XMS_ITS ---
Author Organization [facility] [address] [place] [address] Care Team Providers Care Engraving Supervisor Name Role Phone unknown, Unknown Primary Care Provider Unavailab le Corie Reyez Unavailable Corie Reyez Unavailable Unavailable REASON FOR VISIT PROLO: Lumbar Spine Problems Problem Type SNOMED Code ICD Code Onset Dates Problem Status W/U Status Risk Notes Problem Spondylosis without myelopathy or radiculopathy, lumbosacral region (M47.817) Active confirmed Encounters Encounter Location Date Provider Diagnosis [facility] [address] [place] [address] 06/27/2024 Corie Reyez Spondylosis without myelopathy or radiculopathy, lumbosacral region M47.817 Assessments Encounter Date Diagnosis (ICD Code) Assessment Notes Treatment Notes Treatment Clinical Notes Section Notes 06/27/2024 Spondylosis without myelopathy or radiculopathy, lumbosacral region (ICD-10 - M47.817) Plan Of Treatment No Information Progress Notes * WAGGONERMAURIZIO MENDOZADOB:[birth year] (43 yo M)Acc No.[id number]:06/27/2024 Patient: MAURIZIO NGUYEN Provider: Ariadna Reyez MD :1980 A ge:43 Y S ex:Male Date:06/27/2024 Address:[address] [id number] Pcp:Unknown unknown Check In:03:04 PM ESTCheck O ut:03:46 PM EST * Billing Information: * Visit Code: * Procedure Codes: PRP3 PRP - Non-Spine Bilateral. Care Plan Details* * Sign off status: Completed true * Provider: Ariadna Reyez MD Date: 0 06/27/2024 Generated for Analia valdez/Chintan/Bhumi on: 0 09/16/2024 07:33 AM EDT
--- OUTSIDE RECORDS SUMMARY | 2024-09-16 07:34 | XMS_ITS | Clinical Summary ---
Author Organization [facility] Address [address] [place] [address] Care Team Providers Care User Experience Lead Name Role Phone Unavailable Primary Care Provider Unavailabl e Immunizations Immunization Administration Dates Next Due PPD Skin Test (TB Skin Test) 12/09/2004 Social History Tobacco Use Types Packs/Day Years Used Date Smoking Tobacco: Never Assessed Sex and Gender Information Value Date Recorded Sex Assigned at Not on file Legal Sex Male 8:20 PM EDT Gender Identity Not on file Sexual Orientation Not on file Plan of Treatment Health Maintenance Due Date Last Done Comments [facility]-Depression Screening 1980 [facility]-Infant/Child/Adol SDOH Screenings 1980 [facility]-Varicella Vaccines (1 of 2 - 13+ 2-dose series) 1993 HPV Vaccines (1 - Male 3-dos e series) 10/31/1995 [facility]- SDOH Screenings 1998 [facility]-Adult SDOH Screenings 1998 [facility]-DTaP,Tdap,and Td Vaccine s (1 - Tdap) 10/31/1999 [facility]-Hepatitis B Vaccines (1 of 3 - 19+ 3-dose series) 10/31/1999 [id number] Vaccine (1 - 20 24-25 season) 2023 [facility]-Influenza Vaccine (Seaso n Ended) 2024 [facility]-Zoster Vaccines (1 of 2) 2030 [facility]-HIB Vaccines Aged Out No longer e ligible based on patient's age to complete this topic [facility]-Hepatitis A Vaccines Aged Out No longer eligible based on patient's age to complete this topic [facility]-IPV Vaccines Aged Out No longer e ligible based on patient's age to complete this topic [facility]-Pneumococcal Vaccine: Pediatrics (0 to 5 Years) and At-Risk Patients (6 to 49 Years) Aged Out No long er eligible based on patient's age to complete this topic [facility]-Rotavirus Vaccines Aged Out No lo nger eligible based on patient's age to complete this topic
--- OUTSIDE RECORDS SUMMARY | 2024-09-16 07:34 | XMS_ITS | Clinical Summary ---
Author Organization [facility] Address [address] [place] [address] Care Team Providers Care Development Technologist Name Role Phone Unavailable Primary Care Provider Unavailabl e Social History Tobacco Use Types Packs/Day Years Used Date Smoking Tobacco: Never Assessed Sex and Gender Information Value Date Recorded Sex Assigned at Not on file Legal Sex Male 7:26 AM EST Gender Identity Not on file Sexual Orientation Not on file Plan of Treatment Not on file
[2024-09-16 08:16] LABS: Basophils # 0.1 K/mm3 (0-0.2); Basophils % 1.4 % (0.1-2.0); Eosinophils # 0.1 Kmm3 (0.0-0.4); Eosinophils % 2.3 % (0.1-12.0); Hematocrit 41.4 % (42.0-52.0); Hemoglobin 14.4 g/dL (14.1-18.0); Immature Granulocytes # 0.01 10^3uL; Immature Granulocytes % 0.2 %; Lymphocytes # 1.2 K/mm3 (0.7-4.5); Lymphocytes % 25.3 % (10-50); Mean Corpuscular HGB Conc 34.8 g/dL (31.8-35.4); Mean Corpuscular Hemoglobin 31.1 pg (27.0-31.2); Mean Corpuscular Volume 89.4 fl (80-94); Mean Platelet Volume 10.6 fl (7.4-10.4); Monocytes # 0.3 K/mm3 (0.1-1.0); Neutrophils # 3.2 K/mm3 (1.8-7.8); Neutrophils % 64.8 % (37.0-80.0); Nucleated Red Blood Cells # 0 10^3/uL; Nucleated Red Blood Cells % 0 %; Platelet Count 258 K/mm3 (142-424); Red Blood Count 4.63 M/mm3 (4.60-6.20); Red Cell Distribution Width 11.5 % (11.5-17.5); Red Cell Distribution Width-SD 37.4 fL; White Blood Count 4.9 K/mm3 (4.8-10.8)
[2024-09-16 08:32] LABS: Albumin Level 4.8 g/dl (3.5-5.0); Chloride 103 mmol/L (98-107); Potassium 4.5 mmoL/L (3.5-5.1); Sodium 140 mmol/L (136-145)
[2024-09-16 08:35] LABS: Alanine Aminotransferase 30 U/L (12-78); Albumin/Globulin Ratio 1.9 (1.1-1.8); Alkaline Phosphatase 53 U/L (38-126); Anion Gap 10.5 mEq/L (5-15); Aspartate Amino Transferase 32 U/L (17-59); Bilirubin,Total 0.7 mg/dl (0.2-1.3); Blood Urea Nitrogen 19 mg/dl (9-20); Calcium 9.7 mg/dl (8.4-10.2); Carbon Dioxide 31 mmol/L (22.0-30.0); Estimated Glomerular Filt Rate 92 ml/min (>60); GFR (African American) 111 ML/MIN (>60); Globulin 2.5 g/dL (1.3-3.2); Glucose 98 mg/dl (74-100); Total Protein,Serum 7.3 g/dl (6.3-8.2)
[2024-09-16 08:53] LABS: Free T4 (Free Thyroxine) 0.97 ng/dl (0.78-2.19)
[2024-09-16 09:06] LABS: Thyroid Stimulating Hormone 2.84 uIU/mL (0.465-4.68)
[2024-09-16 10:13] LABS: 25-OH Vitamin D, Total 38.8 ng/mL (30-100)
[2024-09-16 12:32] LABS: Intact Parathyroid Hormone 36.7 pg/mL (7.5-53.5)
== END 2024-09-16 23:59 | disposition home or self-care (01) ==
LOC: LAB 07:32
PROVIDERS: PCP Nurse Practitioner Family; Visit Provider Nurse Practitioner Family
DX: E78.5 Hyperlipidemia, unspecified (principal); E83.52 Hypercalcemia
CPT/HCPCS: 36415; 80053; 82306; 83970; 84439; 84443; 85025